=== PATIENT | male | born 1975 | race Caucasian/White ===

== ENCOUNTER → 2018-10-25 11:39 | Outpatient (CLI) | payer BC, SELFPAY ==
--- NOTE | 2018-10-25 11:44 | US_ITS ---
STUDY: SCROTUM ULTRASOUND REASON FOR EXAM: Male, 43 years old. Left testicular pain for one week and a half intermittent. 2010. TECHNIQUE: Ultrasound evaluation of the scrotum was performed with color Doppler and static lau-scale imaging. COMPARISON: None. FINDINGS: RIGHT TESTICLE The right testis measures 35 x 24 x 22 mm, normal echotexture and vascularity. Right epididymal head 9 x 11 x 14 mm, normal echotexture and vascularity, simple epididymal cyst measuring 7.2 mm. No hydrocele or varicocele. LEFT TESTICLE The left testis measures 34 x 24 x 21 mm, normal echotexture and vascularity. Left epididymal head 10 x 11 x 12 mm, epididymal head cyst measuring 3 mm. Mild epididymal body hyperemia and thickening. Trace hydrocele. No varicocele. Bilateral scrotal wall thickening up to 9 mm. US/Testicular with Arterial Flow IMPRESSION: The features of the left epididymis are most consistent with acute epididymitis. No evidence of orchitis, testicular mass or torsion. Small benign epididymal head cysts. Electronically Signed: Martin Sigala MD at 11:27 EDT Tel , Service support ,
== END ==
PROVIDERS: Family Provider Internal Medicine; PCP Internal Medicine; Referring Provider Nurse Practitioner; Visit Provider Nurse Practitioner
DX: N50.812 Left testicular pain (principal)
CPT/HCPCS: 76870; 93976

== ENCOUNTER → 2018-11-15 13:30 | Outpatient (CLI) | payer SELFPAY | PROVIDERS: Family Provider Internal Medicine; PCP Internal Medicine; Referring Provider Nurse Practitioner; Visit Provider Nurse Practitioner | DX: I10 Essential (primary) hypertension (principal) ==

== ENCOUNTER → 2023-09-08 | Outpatient (CLI) | payer BC, SELFPAY ==
--- NOTE | 2023-09-08 08:05 | CT_ITS ---
STUDY: CT ABDOMEN AND PELVIS WITHOUT CONTRAST REASON FOR EXAM: Male, 48 years old. Hematuria, gross. History of renal calculi. RADIATION DOSAGE (If Supplied By Facility): CTDIvol = ( 8.26 ) mGy, DLP = ( 443.52 ) mGycm TECHNIQUE: Transaxial images were obtained from the dome of the diaphragm to the symphysis pubis without oral contrast, and without intravenous contrast. Sagittal and coronal images were reconstructed. Individualized dose optimization techniques were used for this CT. COMPARISON: None. FINDINGS: The visualized lung bases are unremarkable. The visualized portions of the heart are within normal limits. Normal liver. Normal gallbladder and extrahepatic biliary system. Normal spleen. Normal pancreas. Normal bilateral adrenal glands. Nonobstructive punctate calculus seen in the upper pole calyx of the right kidney. Tiny nonobstructive intrarenal calculus seen in the upper pole calyx of the left kidney. Normal visualized stomach. Normal small intestine. There are scattered colonic diverticula consistent with diverticulosis. The appendix is visualized and appears normal. Normal abdominal aorta. Normal inferior vena cava. Normal retroperitoneum. Normal urinary bladder. There is a left-sided inguinal hernia containing adipose tissue. Normal osseous structures. CT/Abdomen/Pelvis without Cont IMPRESSION: Tiny bilateral nonobstructive intrarenal calculi. Electronically Signed: Flip Jain MD at 10:56 EST ,
--- OUTSIDE RECORDS SUMMARY | 2023-09-08 08:31 | XMS RPT_ITS | CCD ---
Author Name Unknown Address [address] [place] [address] Organization [facility] Care Team Providers Care Debt Management Counselor Name Role Phone Delrois Lofton Unavailable Bailey Patton Unavailable Unavailable Martell Katz Unavailable Unavailable Messenger, Giovanna Unavailable Unavailable Unavailable Unavailable Giovanna Ruiz Unavailable Unavailable Gravius, Rosalie Unavailable Unavailable Cecelia Hugo Unavailable Poncho Ahuja Unavailable Aura Ogden Unavailable Unavailable Messenger, Giovanna Unavailable Unavailable Unavailable Unavailable Cecelia Hugo Unavailable Slarb, Caitlin Unavailable Unavailable Martell Fajardo Unavailable Unavailable Cross, Alisson Unavailable Unavailable Oanh SIDDIQUI Cecelia Unavailable [phone] Slarb CANAL STRUCTURE OPERATOR, Caitlin Unavailable Unavailable Cross CANAL STRUCTURE OPERATOR, Alisson Unavailable Unavailable Gravius MACHINE OPERATOR SLITTER TECHNICIAN, Rosalie Unavailable Unavailable Scotty CANAL STRUCTURE OPERATOR, Martell Unavailable Unavailable Unavailable Unavailable Dain Dawson Unavailable Ki CANAL STRUCTURE OPERATOR, Amanda Unavailable Unavailable Cristin Hugo DOhleen Unavailable José MACHINE OPERATOR SLITTER TECHNICIAN, Kayela Unavailable Unavailable Manchak MACHINE OPERATOR SLITTER TECHNICIAN, Brittney Unavailable Unavailable Dr. Cecelia Hugo Attending Unavailab Dr. Cecelia King [facility] Unavailab Cecelia King DO Attending Unavailable Cecelia Hugo DO Consulting Unavailable [place] CANAL STRUCTURE OPERATOR, Manny Unavailable Unavailable Allergies Allergy Classification Reported Allergen(s) Allergy Type Date of Onset Reaction(s) Facility (20 sources) Erythromycins; Translations: [Erythromycins] allergy to substance [facility] Work Phone: Medications Completed/Discontinued Medications Medication Drug Class(es) Dates Sig (Normalized) Sig (Original) allopurinol 300 mg oral tablet (20 sources) Xanthine Oxidase Inhibitor Start: 11-27-2022 take 1 tablet by mouth once daily allopurinoL 300 mg oral tablet 1 (one) Tablet daily for 0 days Quantity: 30 {Tablet} Refills: 6 Ordered: 27-Nov-2022 Cecelia Hugo DO Oanh Cecelia SIDDIQUI Start : 27-Nov-2022 Active Problems Active Problems Problem Classification Problem Date Documented Da te Episodic/Chronic Allergic reactions (20 sources) Contact dermatitis due to plants, except food; Translations: [Contact dermatitis and other eczema due to plants (except food)] Resolved: 03-26-2022 01-25-2019 Episodic Anxiety disorders (20 sources) Panic attack; Translations: [Panic attack] 08-20-2022 Chronic Chronic obstructive pulmonary disease and bronchiectasis (20 sources) Bronchitis; Translations: [Bronchitis] Resolved: 05-24-2019 10-12-2018 Episodic Disorders of lipid metabolism (20 sources) Hypercholesterolem ia; Translations: [Hypercholesteremi a] 10-19-2018 Chronic Essential hypertension (20 sources) Benign hypertension; Translations: [HTN (hypertension), benign (Renamed from Benign hypertension)] 10-12-2018 Chronic Past or Other Problems Problem Classification Problem Date Documented Da te Episodic/Chronic Influenza (20 sources) Influenza Other ear and sense organ disorders (20 sources) Otalgia of left ear; Translations: [Otalgia, left] Resolved: 08-21-2020 01-25-2019 Results Test Name Value Interpretation Reference Range Facil it Vital Signs Date Time Vital Sign Value Performing Clinician Facility 03-24-2023 10:23-0400 Body height 167.[address] [facility] Work Phone: 03-24-2023 10:23-0400 Body mass index (BMI) [Ratio] 32.12 kg/m2 [facility]; [facility] Work Phone: 03-24-2023 10:23-0400 Body surface area Derived from formula [address] [facility]; [facility] Work Phone: 03-24-2023 10:23-0400 Body temperature 97.6 [degF] [facility]; [facility] Work Phone: 03-24-2023 10:23-0400 Body weight 90.[address] [facility]; [facility] Work Phone: 03-24-2023 10:23-0400 Diastolic blood pressure 70 mm[Hg] [facility]; [facility] Work Phone: Encounters Encounter Date Encounter Type Care Provider Facility Start: 03-24-2023 End: 03-24-2023 Office outpatient visit 15 minutes Cecelia Oanh DO Work Phone: [facility] Start: 09-04-2022 End: 09-04-2022 Office outpatient visit 15 minutes Cecelia Oanh DO Work Phone: [facility] Start: 09-02-2022 ambulatory Cecelia Oanh DO [facility] Start: 08-26-[address] Cecelia Hugo Facility:[id number] Start: 08-20-2022 End: 08-20-2022 Phone Encounter Cecelia Oanh DO Work Phone: [facility] Start: 08-20-2022 End: 08-20-2022 Office outpatient visit 40 minutes Cecelia Oanh DO Work Phone: [facility] Start: 03-26-2022 End: 03-26-2022 Office outpatient visit 15 minutes Cecelia Oanh DO Work Phone: [facility] Start: 06-18-2021 End: 06-18-2021 Office outpatient visit 10 minutes Cecelia Oanh DO Work Phone: [facility] Start: 05-14-2021 End: 05-14-2021 Office outpatient visit 15 minutes Cecelia Oanh DO Work Phone: [facility] Start: 04-22-2021 End: 04-22-2021 Annotation/Addendum Cecelia Oanh DO Work Phone: [facility] Start: 04-22-2021 End: 04-22-2021 Office outpatient visit 15 minutes Cecelia Oanh DO Work Phone: [facility] Start: 04-14-2021 End: 04-14-2021 Annotation/Addendum Cecelia Santanaon DO Work Phone: [facility] Start: 04-14-2021 End: 04-14-2021 Office outpatient visit 10 minutes Cecelia Oanh DO Work Phone: [facility] Start: 01-01-2021 End: 01-01-2021 Office outpatient visit 15 minutes Cecelia Oanh DO Work Phone: [facility] Start: 11-14-2020 End: 11-15-2020 Office outpatient visit 15 minutes Cecelia Oanh DO Work Phone: [facility] Start: 11-08-2020 Review [facility] Start: 09-16-2020 End: 09-16-2020 Office outpatient visit 10 minutes Cecelia Oanh [facility] Start: 08-21-2020 End: 08-21-2020 Office outpatient visit 25 minutes Ceceliaclyde Hugo [facility] Start: 11-23-2019 End: 11-23-2019 Office outpatient visit 25 minutes Deloris Nielsen [facility] Start: 05-24-2019 End: 05-24-2019 Office outpatient visit 25 minutes Deloris Nielsen [facility] Start: 01-25-2019 End: 01-25-2019 Office outpatient visit 15 minutes Deloris Nielsen [facility] Start: 11-21-2018 End: 11-21-2018 Annotation/Addendum Deloris Lofton [facility] Start: 10-31-2018 End: 10-31-2018 Office outpatient visit 15 minutes Deloris Nielsen [facility] Start: 10-26-2018 End: 10-26-2018 Annotation/Addendum Deloris Nielsen [facility] Start: 10-19-2018 End: 10-19-2018 Annotation/Addendum Deloris Lofton [facility] Start: 10-19-2018 End: 10-19-2018 Office outpatient visit 15 minutes Deloris Nielsen [facility] Start: 10-19-2018 Review Deloris Pinedalynn [facility] Start: 10-12-2018 End: 10-12-2018 Office outpatient visit 25 minutes Deloris Nielsen [facility] Start: 09-28-2018 End: 09-28-2018 Office outpatient visit 15 minutes Deloris Nielsen [facility] Start: 05-14-2017 End: 05-14-2017 Phone Encounter Deloris Nielsen [facility] Start: 05-13-2017 End: 05-13-2017 Office outpatient visit 15 minutes Deloris Nielsen [facility] Start: 09-23-2016 End: 09-24-2016 Office outpatient visit 15 minutes Deloris Nielsen [facility] Start: 02-26-2016 End: 02-26-2016 Office outpatient visit 15 minutes Deloris Nielsen [facility] Start: 10-29-2015 End: 10-29-2015 Office outpatient visit 15 minutes Deloris Nielsen [facility] Start: 06-05-2015 End: 06-05-2015 Office outpatient visit 5 minutes Deloris Nielsen [facility] Start: 06-05-2015 End: 06-05-2015 Office outpatient visit 15 minutes Deloris Nielsen [facility] Start: 01-12-2014 End: 01-12-2014 Patient encounter procedure Deloris Nielsen [facility] Start: 08-17-2013 End: 08-17-2013 Patient encounter procedure Deloris Nielsen [facility] Start: 02-23-2013 End: 02-23-2013 Patient encounter procedure Deloris Nielsen [facility] Start: 02-23-2013 End: 02-23-2013 Patient encounter status Cecelia Hugo DO Work Phone: [facility] Start: 10-04-2012 End: 10-04-2012 Office outpatient visit 25 minutes Deloris Nielsen [facility] Start: 01-11-2012 End: 01-11-2012 Office outpatient visit 15 minutes Deloris Nielsen [facility] Start: 12-14-2011 End: 12-14-2011 Annotation/Addendum Deloris Nielsen [facility] Start: 12-09-2011 End: 12-09-2011 Office outpatient visit 15 minutes Deloris Nielsen [facility] Start: 08-10-2011 End: 08-10-2011 Office outpatient visit 15 minutes Deloris Ciesa [facility] Start: 12-30-2010 End: 12-30-2010 Office outpatient new 30 minutes Deloris Lofton [facility] Patient encounter status Caitlin Pillai [facility]; [facility] Work Phone: Patient encounter status Alisson Nazario [facility]; [facility] Work Phone: Patient encounter status Rosalie Hernandez [facility]; [facility] Work Phone: Patient encounter status Amanda Emerson [facility]; [facility] Work Phone: Patient encounter status Rosalie Hernandez [facility]; [facility] Work Phone: [facility] Work [facility] Work Phone: Patient encounter status Manny Rosado [facility]; [facility] Work Phone: Procedures Date Procedure Procedure Detail Performing Clinician Start: 10-25-2018 End: 10-26-2018 Testicular with Arterial Flow Comments: See Note; NOTES: [facility] Services [address] [place] [address] Testicular with Arterial Flow MR#: [id number] Acct: [id number] Name: ANAHY ROGERS Rep #: [id number] : 1975 M 43 From: Martin Sigala MD PCP: Marie Smart MD Status: REG CLI Study: Testicular with Arterial Flow Date of Exam: 10/25/18 Exam# [id number] Ordering Dr: Deloris Lofton DIALER-C STUDY: SCROTUM ULTRASOUND REASON FOR EXAM: Male, 43 years old. Left testicular pain for one week and a half intermittent. Mastectomy 2010. TECHNIQUE: Ultrasound evaluation of the scrotum was performed with color Doppler and static lau-scale imaging. COMPARISON: None. FINDINGS: RIGHT TESTICLE The right testis measures 35 x 24 x 22 mm, normal echotexture and vascularity. Right epididymal head 9 x 11 x 14 mm, normal echotexture and vascularity, simple epididymal cyst measuring 7.2 mm. No hydrocele or varicocele. LEFT TESTICLE The left testis measures 34 x 24 x 21 mm, normal echotexture and vascularity. Left epididymal head 10 x 11 x 12 mm, epididymal head cyst measuring 3 mm. Mild epididymal body hyperemia and thickening. Trace hydrocele. No varicocele. Bilateral scrotal wall thickening up to 9 mm. US/Testicular with Arterial Flow IMPRESSION: The features of the left epididymis are most consistent with acute epididymitis. No evidence of orchitis, testicular mass or torsion. Small benign epididymal head cysts. Electronically Signed: Martin Sigala MD at 11:27 EDT Tel , Service support , CC: Deloris Lofton DIALER; Marie Smart MD Director Nurses' Registry: Signed Deloris Lofton Work Phone: Plan of Treatment Date Care Activity Detail Author Start: 03-24-2023 Procedure Education Eprescribed prescriptions (G8553) [facility]; [facility] Work Phone: Start: 09-04-2022 Procedure Education Eprescribed prescriptions (G8553) [facility]; [facility] Work Phone: Start: 09-04-2022 Provider Instructions for Treatment [facility]; [facility] Work Phone: Start: 08-20-2022 Assay of thyroid stimulating hormone tsh TSH (THYROID STIMULATING HORMONE) (29108) [facility]; [facility] Work Phone: Start: 08-20-2022 Procedure Education Eprescribed prescriptions (G8553) [facility]; [facility] Work Phone: Start: 08-20-2022 Provider Instructions for Treatment Continue Current Prescription(s) [facility]; [facility] Work Phone: Start: 08-20-2022 Urine albumin quantitative MICROALBUMIN: CREATININE RATIO (42651) AND (23053) [facility]; [facility] Work Phone: Start: 08-20-2022 Urinalysis qual/semiquant except immunoassays URINALYSIS (97342) [facility]; [facility] Work Phone: Start: 08-20-2022 Assay of blood/uric acid URIC ACID BLOOD (16395) [facility]; [facility] Work Phone: Start: 08-20-2022 Lipid panel LIPID PANEL (38658) [facility]; [facility] Work Phone: Start: 08-20-2022 25 hydroxy includes fractions if performed CALCIFEDIOL (17968) [facility]; [facility] Work Phone: Start: 08-20-2022 Comprehensive metabolic panel METABOLIC PANEL, COMPREHENSIVE (26779) [facility]; [facility] Work Phone: Start: 08-20-2022 CBC, PLATELETS & MANUAL DIFF (07509) CBC, PLATELETS & MANUAL DIFF (15772) [facility]; [facility] Work Phone: Start: 08-20-2022 Assay of troponin quantitative Troponin I (92419) [facility]; [facility] Work Phone: Start: 08-20-2022 Hemoglobin glycosylated a1c HGB A1C (66020) [facility]; [facility] Work Phone: Start: 08-20-2022 Sedimentation rate rbc non-automated SED RATE ERYTHROCYTE (24916) [facility]; [facility] Work Phone: Start: 08-20-2022 Cyanocobalamin vitamin b-12 VITAMIN B-12 (CYANOCOBALAMIN) (64657) [facility]; [facility] Work Phone: Start: 03-26-2022 Procedure Education Eprescribed prescriptions (G8553) [facility]; [facility] Work Phone: Start: 09-01-2022 Provider Instructions for Treatment [facility]; [facility] Work Phone: Start: 06-18-2021 Provider Instructions for Treatment [facility]; [facility] Work Phone: Start: 05-14-2021 Provider Instructions for Treatment Follow up in 1 month with [facility] for Gen med [facility]; [facility] Work Phone: Start: 04-22-2021 Procedure Education Eprescribed prescriptions (G8553) [facility]; [facility] Work Phone: Start: 04-22-2021 Provider Instructions for Treatment Follow up in 2 weeks virtual [facility]; [facility] Work Phone: Start: 04-14-2021 Procedure Education Eprescribed prescriptions (G8553) [facility]; [facility] Work Phone: Start: 04-14-2021 Provider Instructions for Treatment [facility]; [facility] Work Phone: Start: 01-01-2021 Procedure Education Eprescribed prescriptions (G8553) [facility]; [facility] Work Phone: Start: 01-01-2021 Provider Instructions for Treatment [facility]; [facility] Work Phone: Start: 11-14-2020 Procedure Education Eprescribed prescriptions (G8553) [facility]; [facility] Work Phone: Start: 11-14-2020 Provider Instructions for Treatment [facility]; [facility] Work Phone: Start: 11-14-2020 Assay of blood/uric acid URIC ACID BLOOD (87762) [facility] Work Phone: Start: 11-14-2020 25 hydroxy includes fractions if performed CALCIFIDIOL (39440) VIT D 25 [facility]; [facility] Work Phone: Start: 11-14-2020 Assay of thyroid stimulating hormone tsh TSH (43060) [facility]; [facility] Work Phone: Start: 11-14-2020 Urnls dip stick/tablet reagent auto microscopy URINALYSIS, W/ MICRO (07317) [facility]; [facility] Work Phone: Start: 11-14-2020 Urine albumin quantitative MICROALBUMIN: CREATININE RATIO (49619) AND (87832) [facility]; [facility] Work Phone: Start: 11-14-2020 Comprehensive metabolic panel METABOLIC PANEL, COMPREHENSIVE (05986) [facility]; [facility] Work Phone: Start: 11-14-2020 Blood count complete auto&auto difrntl wbc CBC W/AUTO DIFF WBC (18629) [facility]; [facility] Work Phone: Start: 11-14-2020 Lipid panel LIPID PANEL (89885) [facility]; [facility] Work Phone: Start: 11-08-2020 Procedure Education Eprescribed prescriptions (G8553) [facility]; [facility] Work Phone: Start: 11-08-2020 Provider Instructions for Treatment COVID SCREENING FORM [facility]; [facility] Work Phone: Start: 09-16-2020 Procedure Education Eprescribed prescriptions (G8553) [facility]; [facility] Work Phone: Start: 09-16-2020 Provider Instructions for Treatment [facility]; [facility] Work Phone: Start: 08-21-2020 Procedure Education Eprescribed prescriptions (G8553) [facility]; [facility] Work Phone: Start: 08-21-2020 Provider Instructions for Treatment [facility]; [facility] Work Phone: Start: 08-21-2020 Lipid panel LIPID PANEL (11752) [facility] Work Phone: Start: 11-23-2019 Procedure Education Eprescribed prescriptions (G8553) [facility] Work Phone: Start: 11-23-2019 Provider Instructions for Treatment [facility] Work Phone: Start: 11-23-2019 Assay of blood/uric acid URIC ACID BLOOD (29716) [facility] Work Phone: Start: 11-23-2019 25 hydroxy includes fractions if performed CALCIFIDIOL (29271) VIT D 25 [facility] Work Phone: Start: 11-23-2019 Assay of thyroid stimulating hormone tsh TSH (02365) [facility]; [facility] Work Phone: Start: 11-23-2019 TSH Qn TSH (71372) [facility] Work Phone: Start: 11-23-2019 Urnls dip stick/tablet reagent auto microscopy URINALYSIS, W/ MICRO (98810) [facility] Work Phone: Start: 11-23-2019 Urine albumin quantitative MICROALBUMIN: CREATININE RATIO (07588) AND (96440) [facility] Work Phone: Start: 11-23-2019 Comprehensive metabolic panel METABOLIC PANEL, COMPREHENSIVE (20580) [facility] Work Phone: Start: 11-23-2019 Blood count complete auto&auto difrntl wbc CBC W/AUTO DIFF WBC (12465) [facility] Work Phone: Start: 11-23-2019 Lipid panel LIPID PANEL (01529) [facility] Work Phone: Start: 05-24-2019 Provider Instructions for Treatment [facility] Work Phone: Start: 05-24-2019 25 hydroxy includes fractions if performed CALCIFIDIOL (53430) VIT D 25 [facility] Work Phone: Start: 05-24-2019 Assay of thyroid stimulating hormone tsh TSH (46163) [facility]; [facility] Work Phone: Start: 05-24-2019 TSH Qn TSH (83706) [facility] Work Phone: Start: 05-24-2019 Urnls dip stick/tablet reagent auto microscopy URINALYSIS, W/ MICRO (32496) [facility] Work Phone: Start: 05-24-2019 Urine albumin quantitative MICROALBUMIN: CREATININE RATIO (29837) AND (73990) [facility] Work Phone: Start: 05-24-2019 Comprehensive metabolic panel METABOLIC PANEL, COMPREHENSIVE (45025) [facility] Work Phone: Start: 05-24-2019 Blood count complete auto&auto difrntl wbc CBC W/AUTO DIFF WBC (89405) [facility] Work Phone: Start: 05-24-2019 Lipoprotein blood rissa numbers & subclasses NMR Profile (34604) [facility] Work Phone: Start: 01-25-2019 Provider Instructions for Treatment [facility] Work Phone: Start: 01-16-2019 Hemoglobin A1c/Hemoglobin.total mass fraction (Bld) HGB A1C (42575) [facility] Work Phone: Start: 01-16-2019 Urnls dip stick/tablet rgnt auto w/o microscopy URINALYSIS W/O MICRO (31096) [facility] Work Phone: Start: 01-16-2019 25 hydroxy includes fractions if performed CALCIFEDIOL (91425) [facility] Work Phone: Start: 01-16-2019 Lipoprotein blood rissa numbers & subclasses NMR Profile (34714) [facility] Work Phone: Start: 01-16-2019 Protein mass conc NMR Profile (36883) [facility] Work Phone: Start: 01-16-2019 Comprehensive metabolic panel Metabolic Panel, Comprehensive (20645) [facility] Work Phone: Start: 01-16-2019 Assay of blood/uric acid URIC ACID BLOOD (46802) [facility] Work Phone: Start: 10-31-2018 Patient Education Gout: joint [facility] Work Phone: Start: 10-31-2018 Procedure Education Eprescribed prescriptions (G8553) [facility] Work Phone: Start: 10-31-2018 Provider Instructions for Treatment Follow up if no improvement or if symptoms worsen [facility] Work Phone: Start: 10-31-2018 Assay of blood/uric acid URIC ACID BLOOD (38375) [facility] Work Phone: Start: 10-19-2018 Procedure Education Eprescribed prescriptions (G8553) [facility] Work Phone: Start: 10-19-2018 Provider Instructions for Treatment [facility] Work Phone: Start: 10-12-2018 Procedure Education Eprescribed prescriptions (G8553) [facility] Work Phone: Start: 10-12-2018 Provider Instructions for Treatment [facility] Work Phone: Start: 10-12-2018 Lipoprotein blood rissa numbers & subclasses NMR Profile (13058) [facility] Work Phone: Start: 10-12-2018 Blood count manual cell count each CBC with auto diff (05342) [facility] Work Phone: Start: 10-12-2018 Comprehensive metabolic panel METABOLIC PANEL, COMPREHENSIVE (83017) [facility] Work Phone: Start: 10-12-2018 Lipid panel LIPID PANEL (01404) [facility] Work Phone: Start: 10-12-2018 TSH Qn TSH ([id number]) [facility] Work Phone: Start: 10-12-2018 Urine albumin quantitative MICROALBUMIN: CREATININE RATIO ([id number]) AND ([id number]) [facility] Work Phone: Start: 10-12-2018 Urnls dip stick/tablet reagent auto microscopy URINALYSIS, W/ MICRO ([id number]) [facility] Work Phone: Start: 09-28-2018 Procedure Education Eprescribed prescriptions (G8553) [facility] Work Phone: Start: 09-28-2018 Provider Instructions for Treatment Follow up in 2 weeks [facility] Work Phone: Start: 05-13-2017 Procedure Education Eprescribed prescriptions (G8553) [facility] Work Phone: Start: 09-23-2016 Patient Education Earache: ear ache [facility] Work Phone: Start: 09-23-2016 Procedure Education Eprescribed prescriptions (G8553) [facility] Work Phone: Start: 02-26-2016 Procedure Education Eprescribed prescriptions (G8553) [facility] Work Phone: Start: 02-26-2016 Provider Instructions for Treatment Follow up if no improvement or if symptoms worsen [facility] Work Phone: Start: 10-29-2015 Provider Instructions for Treatment [facility] Work Phone: Start: 06-05-2015 Patient Education Hematuria (Blood in Urine): kidney [facility] Work Phone: Start: 06-05-2015 Procedure Education Eprescribed prescriptions (G8553) [facility] Work Phone: Start: 01-12-2014 Procedure Education Eprescribed prescriptions (G8553) [facility] Work Phone: Start: 01-12-2014 Provider Instructions for Treatment Reviewed Lab [facility] Work Phone: Start: 08-17-2013 Provider Instructions for Treatment Solu Medrol Injection/ Education [facility] Work Phone: Start: 02-23-2013 Provider Instructions for Treatment Follow up in 1 yr [facility] Work Phone: Start: 10-04-2012 Nursing Care Education IV [facility] Work Phone: Start: 10-04-2012 Provider Instructions for Treatment [facility] Work Phone: Start: 10-04-2012 Iaadiadoo influenza Rapid Flu (89437 x 2) [facility] Work Phone: Start: 01-11-2012 Provider Instructions for Treatment Follow up if no improvement or if symptoms worsen [facility] Work Phone: Start: 01-11-2012 25 hydroxy includes fractions if performed CALCIFEDIOL (75990) [facility] Work Phone: Start: 12-14-2011 25 hydroxy includes fractions if performed CALCIFEDIOL (66944) [facility] Work Phone: Start: 12-09-2011 Provider Instructions for Treatment Follow up in 2 weeks [facility] Work Phone: Start: 12-09-2011 25 hydroxy includes fractions if performed CALCIFEDIOL (73497) [facility] Work Phone: [facility] Work [facility]: [facility] Work [facility]: [facility] Work [facility]: [facility] Work [facility]: [facility] Work [facility] Work [facility]: [facility] Work [facility]: [facility] Work [facility]: [facility] Work Phone: INFUSION, NORMAL SALINE SOLUTION , 1000 CC Ordered: 04-Oct-2012 Amelia Luque LPN Pending [facility] Work Phone: [facility] Work [facility]: [facility] Work [facility]: [facility] Work Phone: Dehydration : IV [facility] Work Phone: [facility] Work [facility]: [facility] Work [facility]: [facility] Work [facility]: [facility] Work [facility] Work Phone: [facility] Work Phone: [facility] Work Phone: [facility] Work Phone: [facility] Work Phone: Immunizations Immunization Date Immunization Notes Care Provider Glendy chalinogabriel 04-12-2022 COVID-Pfizer (10 MCG/0.2 ML) Cecelia Hugo DO Work Phone: [facility]; [facility] Work Phone: 04-09-2022 influenza, seasonal, injectable Cecelia Hugo DO Work Phone: [facility]; [facility] Work Phone: 11-23-2020 COVID-19 (Moderna) Cecelia Hugo DO Work Phone: [facility]; [facility] Work Phone: Payers Date Payer Category Payer Unknown [id number] 2009 Private Health Insurance [id number] 1977 Unknown [id number] 1977 Unknown [id number] Unknown Audrey AMOS/LEANDRO Unknown [id number] Social History Date Type Detail Facility Tobacco use: Never smoker [facility] Work Phone: Tobacco use: Tobacco use: [facility] Work Phone: Functional Status Date Assessment Result Facility 10-12-2018 LP-IR Score LP-IR Score 100 [facility] Work Phone: Clinical Notes Note Date & Type Note Facility [facility] Work Phone: [phone]* Name Dates Details How to Access Health Informa tion Online using Patient Portal and [employer] Apps Indication:Non-smoker Start:14-Nov-2020 Instruction Type:Patient Education Patient Instructions Indication:Non-smoker Start:14-Nov-2020 Instruction Type:Provider Instructions for Treatment Patient Instructions Indication:Non-smoker Start:16-Sep-2020 Instruction Type:Provider Instructions for Treatment How to Access Health Informa tion Online using Patient Portal and [employer] Apps Indication:Non-smoker Start:16-Sep-2020 Instruction Type:Patient Education Patient Instructions Indication:Non-smoker Start:21-Aug-2020 Instruction Type:Provider Instructions for Treatment How to Access Health Informa tion Online using Patient Portal and [employer] Apps Indication:Non-smoker Start:21-Aug-2020 Instruction Type:Patient Education How to access health informa tion online Indication:Non-smoker Start:23-Nov-2019 Instruction Type:Patient Education How to access health informa tion online - Detail Indication:Non-smoker Start:23-Nov-2019 Instruction Type:Patient Education Patient Instructions Indication:Non-smoker Start:23-Nov-2019 Instruction Type:Provider Instructions for Treatment How to access health informa tion online Indication:Non-smoker Start:25-Jan-2019 Instruction Type:Patient Education How to access health informa tion online - Detail Indication:Non-smoker Start:25-Jan-2019 Instruction Type:Patient Education Patient Instructions Indication:Non-smoker Start:25-Jan-2019 Instruction Type:Provider Instructions for Treatment How to access health informa tion online Indication:Non-smoker Start:31-Oct-2018 Instruction Type:Patient Education How to access health informa tion online - Detail Indication:Non-smoker Start:31-Oct-2018 Instruction Type:Patient Education Patient Instructions Indication:Gout Start:31-Oct-2018 Instruction Type:Provider Instructions for Treatment How to access health informa tion online Indication:Non-smoker Start:19-Oct-2018 Instruction Type:Patient Education How to access health informa tion online - Detail Indication:Non-smoker Start:19-Oct-2018 Instruction Type:Patient Education Patient Instructions Indication:Elevated blood-pressure reading, without diagnosis of hypertension (Renamed from Elevated blood-pressure reading without diagnosis of hypertension) Start:19-Oct-2018 Instruction Type:Provider Instructions for Treatment How to access health informa tion online Indication:BMI 32.0-32.9,adult Start:12-Oct-2018 Instruction Type:Patient Education How to access health informa tion online - Detail Indication:BMI 32.0-32.9,adult Start:12-Oct-2018 Instruction Type:Patient Education Patient Instructions Indication:BMI 32.0-32.9,adult Start:12-Oct-2018 Instruction Type:Provider Instructions for Treatment How to access health informa tion online Indication:Non-smoker Start:28-Sep-2018 Instruction Type:Patient Education How to access health informa tion online - Detail Indication:Non-smoker Start:28-Sep-2018 Instruction Type:Patient Education Patient Instructions Indication:Non-smoker Start:28-Sep-2018 Instruction Type:Provider Instructions for Treatment How to access health informa tion online Indication:Bacterial sinusitis Start:13-May-2017 Instruction Type:Patient Education How to access health informa tion online - Detail Indication:Bacterial sinusitis Start:13-May-2017 Instruction Type:Patient Education Patient Instructions Indication:Bacterial sinusitis Start:13-May-2017 Instruction Type:Provider Instructions for Treatment How to access health informa tion online Indication:Bacterial sinusitis Start:23-Sep-2016 Instruction Type:Patient Education How to access health informa tion online - Detail Indication:Bacterial sinusitis Start:23-Sep-2016 Instruction Type:Patient Education Patient Instructions Indication:Bacterial sinusitis Start:23-Sep-2016 Instruction Type:Provider Instructions for Treatment How to access health informa tion online Indication:Rash Start:26-Feb-2016 Instruction Type:Patient Education How to access health informa tion online - Detail Indication:Rash Start:26-Feb-2016 Instruction Type:Patient Education Patient Instructions Indication:Rash Start:26-Feb-2016 Instruction Type:Provider Instructions for Treatment How to access health informa tion online Indication:Hematuria Start:05-Jun-2015 Instruction Type:Patient Education How to access health informa tion online - Detail Indication:Hematuria Start:05-Jun-2015 Instruction Type:Patient Education Patient Instructions Indication:Hematuria Start:05-Jun-2015 Instruction Type:Provider Instructions for Treatment Patient Instructions Indication:Gout Start:12-Jan-2014 Instruction Type:Provider Instructions for Treatment Patient Instructions Indication:Foot pain Start:17-Aug-2013 Instruction Type:Provider Instructions for Treatment [facility]; [facility] Work Phone: Instructions* Name Dates Details Patient Instructions Indication:BMI 32.0-32.9,adult Start:01-Jan-2021 Instruction Type:Provider Instructions for Treatment How to Access Health Informa tion Online using Patient Portal and [employer] Apps Indication:BMI 32.0-32.9,adult Start:01-Jan-2021 Instruction Type:Patient Education How to Access Health Informa tion Online using Patient Portal and [employer] Apps Indication:Non-smoker Start:14-Nov-2020 Instruction Type:Patient Education Patient Instructions Indication:Non-smoker Start:14-Nov-2020 Instruction Type:Provider Instructions for Treatment Patient Instructions Indication:Non-smoker Start:16-Sep-2020 Instruction Type:Provider Instructions for Treatment How to Access Health Informa tion Online using Patient Portal and [employer] Apps Indication:Non-smoker Start:16-Sep-2020 Instruction Type:Patient Education Patient Instructions Indication:Non-smoker Start:21-Aug-2020 Instruction Type:Provider Instructions for Treatment How to Access Health Informa tion Online using Patient Portal and [employer] Apps Indication:Non-smoker Start:21-Aug-2020 Instruction Type:Patient Education How to access health informa tion online Indication:Non-smoker Start:23-Nov-2019 Instruction Type:Patient Education How to access health informa tion online - Detail Indication:Non-smoker Start:23-Nov-2019 Instruction Type:Patient Education Patient Instructions Indication:Non-smoker Start:23-Nov-2019 Instruction Type:Provider Instructions for Treatment How to access health informa tion online Indication:Non-smoker Start:25-Jan-2019 Instruction Type:Patient Education How to access health informa tion online - Detail Indication:Non-smoker Start:25-Jan-2019 Instruction Type:Patient Education Patient Instructions Indication:Non-smoker Start:25-Jan-2019 Instruction Type:Provider Instructions for Treatment How to access health informa tion online Indication:Non-smoker Start:31-Oct-2018 Instruction Type:Patient Education How to access health informa tion online - Detail Indication:Non-smoker Start:31-Oct-2018 Instruction Type:Patient Education Patient Instructions Indication:Gout Start:31-Oct-2018 Instruction Type:Provider Instructions for Treatment How to access health informa tion online Indication:Non-smoker Start:19-Oct-2018 Instruction Type:Patient Education How to access health informa tion online - Detail Indication:Non-smoker Start:19-Oct-2018 Instruction Type:Patient Education Patient Instructions Indication:Elevated blood-pressure reading, without diagnosis of hypertension (Renamed from Elevated blood-pressure reading without diagnosis of hypertension) Start:19-Oct-2018 Instruction Type:Provider Instructions for Treatment How to access health informa tion online Indication:BMI 32.0-32.9,adult Start:12-Oct-2018 Instruction Type:Patient Education How to access health informa tion online - Detail Indication:BMI 32.0-32.9,adult Start:12-Oct-2018 Instruction Type:Patient Education Patient Instructions Indication:BMI 32.0-32.9,adult Start:12-Oct-2018 Instruction Type:Provider Instructions for Treatment How to access health informa tion online Indication:Non-smoker Start:28-Sep-2018 Instruction Type:Patient Education How to access health informa tion online - Detail Indication:Non-smoker Start:28-Sep-2018 Instruction Type:Patient Education Patient Instructions Indication:Non-smoker Start:28-Sep-2018 Instruction Type:Provider Instructions for Treatment How to access health informa tion online Indication:Bacterial sinusitis Start:13-May-2017 Instruction Type:Patient Education How to access health informa tion online - Detail Indication:Bacterial sinusitis Start:13-May-2017 Instruction Type:Patient Education Patient Instructions Indication:Bacterial sinusitis Start:13-May-2017 Instruction Type:Provider Instructions for Treatment How to access health informa tion online Indication:Bacterial sinusitis Start:23-Sep-2016 Instruction Type:Patient Education How to access health informa tion online - Detail Indication:Bacterial sinusitis Start:23-Sep-2016 Instruction Type:Patient Education Patient Instructions Indication:Bacterial sinusitis Start:23-Sep-2016 Instruction Type:Provider Instructions for Treatment How to access health informa tion online Indication:Rash Start:26-Feb-2016 Instruction Type:Patient Education How to access health informa tion online - Detail Indication:Rash Start:26-Feb-2016 Instruction Type:Patient Education Patient Instructions Indication:Rash Start:26-Feb-2016 Instruction Type:Provider Instructions for Treatment How to access health informa tion online Indication:Hematuria Start:05-Jun-2015 Instruction Type:Patient Education How to access health informa tion online - Detail Indication:Hematuria Start:05-Jun-2015 Instruction Type:Patient Education Patient Instructions Indication:Hematuria Start:05-Jun-2015 Instruction Type:Provider Instructions for Treatment Patient Instructions Indication:Gout Start:12-Jan-2014 Instruction Type:Provider Instructions for Treatment Patient Instructions Indication:Foot pain Start:17-Aug-2013 Instruction Type:Provider Instructions for Treatment [facility]; [facility] Work Phone: Instructions* Name Dates Details Patient Instructions Indication:HTN (hypertension), benign Start:18-Jun-2021 Instruction Type:Provider Instructions for Treatment Patient Instructions Indication:HTN (hypertension), benign Start:14-May-2021 Instruction Type:Provider Instructions for Treatment Patient Instructions Indication:BMI 32.0-32.9,adult Start:22-Apr-2021 Instruction Type:Provider Instructions for Treatment How to Access Health Informa tion Online using Patient Portal and [employer] Apps Indication:BMI 32.0-32.9,adult Start:22-Apr-2021 Instruction Type:Patient Education Patient Instructions Indication:Non-smoker Start:14-Apr-2021 Instruction Type:Provider Instructions for Treatment How to Access Health Informa tion Online using Patient Portal and [employer] Apps Indication:Non-smoker Start:14-Apr-2021 Instruction Type:Patient Education Patient Instructions Indication:BMI 32.0-32.9,adult Start:01-Jan-2021 Instruction Type:Provider Instructions for Treatment How to Access Health Informa tion Online using Patient Portal and [employer] Republican Apps Indication:BMI 32.0-32.9,adult Start:01-Jan-2021 Instruction Type:Patient Education How to Access Health Informa tion Online using Patient Portal and [employer] Apps Indication:Non-smoker Start:14-Nov-2020 Instruction Type:Patient Education Patient Instructions Indication:Non-smoker Start:14-Nov-2020 Instruction Type:Provider Instructions for Treatment Patient Instructions Indication:Non-smoker Start:16-Sep-2020 Instruction Type:Provider Instructions for Treatment How to Access Health Informa tion Online using Patient Portal and [employer] Apps Indication:Non-smoker Start:16-Sep-2020 Instruction Type:Patient Education Patient Instructions Indication:Non-smoker Start:21-Aug-2020 Instruction Type:Provider Instructions for Treatment How to Access Health Informa tion Online using Patient Portal and [employer] Apps Indication:Non-smoker Start:21-Aug-2020 Instruction Type:Patient Education How to access health informa tion online Indication:Non-smoker Start:23-Nov-2019 Instruction Type:Patient Education How to access health informa tion online - Detail Indication:Non-smoker Start:23-Nov-2019 Instruction Type:Patient Education Patient Instructions Indication:Non-smoker Start:23-Nov-2019 Instruction Type:Provider Instructions for Treatment How to access health informa tion online Indication:Non-smoker Start:25-Jan-2019 Instruction Type:Patient Education How to access health informa tion online - Detail Indication:Non-smoker Start:25-Jan-2019 Instruction Type:Patient Education Patient Instructions Indication:Non-smoker Start:25-Jan-2019 Instruction Type:Provider Instructions for Treatment How to access health informa tion online Indication:Non-smoker Start:31-Oct-2018 Instruction Type:Patient Education How to access health informa tion online - Detail Indication:Non-smoker Start:31-Oct-2018 Instruction Type:Patient Education Patient Instructions Indication:Gout Start:31-Oct-2018 Instruction Type:Provider Instructions for Treatment How to access health informa tion online Indication:Non-smoker Start:19-Oct-2018 Instruction Type:Patient Education How to access health informa tion online - Detail Indication:Non-smoker Start:19-Oct-2018 Instruction Type:Patient Education Patient Instructions Indication:Elevated blood-pressure reading, without diagnosis of hypertension (Renamed from Elevated blood-pressure reading without diagnosis of hypertension) Start:19-Oct-2018 Instruction Type:Provider Instructions for Treatment How to access health informa tion online Indication:BMI 32.0-32.9,adult Start:12-Oct-2018 Instruction Type:Patient Education How to access health informa tion online - Detail Indication:BMI 32.0-32.9,adult Start:12-Oct-2018 Instruction Type:Patient Education Patient Instructions Indication:BMI 32.0-32.9,adult Start:12-Oct-2018 Instruction Type:Provider Instructions for Treatment How to access health informa tion online Indication:Non-smoker Start:28-Sep-2018 Instruction Type:Patient Education How to access health informa tion online - Detail Indication:Non-smoker Start:28-Sep-2018 Instruction Type:Patient Education Patient Instructions Indication:Non-smoker Start:28-Sep-2018 Instruction Type:Provider Instructions for Treatment How to access health informa tion online Indication:Bacterial sinusitis Start:13-May-2017 Instruction Type:Patient Education How to access health informa tion online - Detail Indication:Bacterial sinusitis Start:13-May-2017 Instruction Type:Patient Education Patient Instructions Indication:Bacterial sinusitis Start:13-May-2017 Instruction Type:Provider Instructions for Treatment How to access health informa tion online Indication:Bacterial sinusitis Start:23-Sep-2016 Instruction Type:Patient Education How to access health informa tion online - Detail Indication:Bacterial sinusitis Start:23-Sep-2016 Instruction Type:Patient Education Patient Instructions Indication:Bacterial sinusitis Start:23-Sep-2016 Instruction Type:Provider Instructions for Treatment How to access health informa tion online Indication:Rash Start:26-Feb-2016 Instruction Type:Patient Education How to access health informa tion online - Detail Indication:Rash Start:26-Feb-2016 Instruction Type:Patient Education Patient Instructions Indication:Rash Start:26-Feb-2016 Instruction Type:Provider Instructions for Treatment How to access health informa tion online Indication:Hematuria Start:05-Jun-2015 Instruction Type:Patient Education How to access health informa tion online - Detail Indication:Hematuria Start:05-Jun-2015 Instruction Type:Patient Education Patient Instructions Indication:Hematuria Start:05-Jun-2015 Instruction Type:Provider Instructions for Treatment Patient Instructions Indication:Gout Start:12-Jan-2014 Instruction Type:Provider Instructions for Treatment Patient Instructions Indication:Foot pain Start:17-Aug-2013 Instruction Type:Provider Instructions for Treatment [facility]; [facility] Work Phone: Instructions* Name Dates Details Patient Instructions Indication:HTN (hypertension), benign Start:18-Jun-2021 Instruction Type:Provider Instructions for Treatment Patient Instructions Indication:HTN (hypertension), benign Start:14-May-2021 Instruction Type:Provider Instructions for Treatment Patient Instructions Indication:BMI 32.0-32.9,adult Start:22-Apr-2021 Instruction Type:Provider Instructions for Treatment How to Access Health Informa tion Online using Patient Portal and [employer] Apps Indication:BMI 32.0-32.9,adult Start:22-Apr-2021 Instruction Type:Patient Education Patient Instructions Indication:Non-smoker Start:14-Apr-2021 Instruction Type:Provider Instructions for Treatment How to Access Health Informa tion Online using Patient Portal and [employer] Apps Indication:Non-smoker Start:14-Apr-2021 Instruction Type:Patient Education Patient Instructions Indication:BMI 32.0-32.9,adult Start:01-Jan-2021 Instruction Type:Provider Instructions for Treatment How to Access Health Informa tion Online using Patient Portal and [employer] Apps Indication:BMI 32.0-32.9,adult Start:01-Jan-2021 Instruction Type:Patient Education How to Access Health Informa tion Online using Patient Portal and [employer] Apps Indication:Non-smoker Start:14-Nov-2020 Instruction Type:Patient Education Patient Instructions Indication:Non-smoker Start:14-Nov-2020 Instruction Type:Provider Instructions for Treatment Patient Instructions Indication:Non-smoker Start:16-Sep-2020 Instruction Type:Provider Instructions for Treatment How to Access Health Informa tion Online using Patient Portal and [employer] Apps Indication:Non-smoker Start:16-Sep-2020 Instruction Type:Patient Education Patient Instructions Indication:Non-smoker Start:21-Aug-2020 Instruction Type:Provider Instructions for Treatment How to Access Health Informa tion Online using Patient Portal and [employer] Apps Indication:Non-smoker Start:21-Aug-2020 Instruction Type:Patient Education How to access health informa tion online Indication:Non-smoker Start:23-Nov-2019 Instruction Type:Patient Education How to access health informa tion online - Detail Indication:Non-smoker Start:23-Nov-2019 Instruction Type:Patient Education Patient Instructions Indication:Non-smoker Start:23-Nov-2019 Instruction Type:Provider Instructions for Treatment How to access health informa tion online Indication:Non-smoker Start:25-Jan-2019 Instruction Type:Patient Education How to access health informa tion online - Detail Indication:Non-smoker Start:25-Jan-2019 Instruction Type:Patient Education Patient Instructions Indication:Non-smoker Start:25-Jan-2019 Instruction Type:Provider Instructions for Treatment How to access health informa tion online Indication:Non-smoker Start:31-Oct-2018 Instruction Type:Patient Education How to access health informa tion online - Detail Indication:Non-smoker Start:31-Oct-2018 Instruction Type:Patient Education Patient Instructions Indication:Gout Start:31-Oct-2018 Instruction Type:Provider Instructions for Treatment How to access health informa tion online Indication:Non-smoker Start:19-Oct-2018 Instruction Type:Patient Education How to access health informa tion online - Detail Indication:Non-smoker Start:19-Oct-2018 Instruction Type:Patient Education Patient Instructions Indication:Elevated blood-pressure reading, without diagnosis of hypertension (Renamed from Elevated blood-pressure reading without diagnosis of hypertension) Start:19-Oct-2018 Instruction Type:Provider Instructions for Treatment How to access health informa tion online Indication:BMI 32.0-32.9,adult Start:12-Oct-2018 Instruction Type:Patient Education How to access health informa tion online - Detail Indication:BMI 32.0-32.9,adult Start:12-Oct-2018 Instruction Type:Patient Education Patient Instructions Indication:BMI 32.0-32.9,adult Start:12-Oct-2018 Instruction Type:Provider Instructions for Treatment How to access health informa tion online Indication:Non-smoker Start:28-Sep-2018 Instruction Type:Patient Education How to access health informa tion online - Detail Indication:Non-smoker Start:28-Sep-2018 Instruction Type:Patient Education Patient Instructions Indication:Non-smoker Start:28-Sep-2018 Instruction Type:Provider Instructions for Treatment How to access health informa tion online Indication:Bacterial sinusitis Start:13-May-2017 Instruction Type:Patient Education How to access health informa tion online - Detail Indication:Bacterial sinusitis Start:13-May-2017 Instruction Type:Patient Education Patient Instructions Indication:Bacterial sinusitis Start:13-May-2017 Instruction Type:Provider Instructions for Treatment How to access health informa tion online Indication:Bacterial sinusitis Start:23-Sep-2016 Instruction Type:Patient Education How to access health informa tion online - Detail Indication:Bacterial sinusitis Start:23-Sep-2016 Instruction Type:Patient Education Patient Instructions Indication:Bacterial sinusitis Start:23-Sep-2016 Instruction Type:Provider Instructions for Treatment How to access health informa tion online Indication:Rash Start:26-Feb-2016 Instruction Type:Patient Education How to access health informa tion online - Detail Indication:Rash Start:26-Feb-2016 Instruction Type:Patient Education Patient Instructions Indication:Rash Start:26-Feb-2016 Instruction Type:Provider Instructions for Treatment How to access health informa tion online Indication:Hematuria Start:05-Jun-2015 Instruction Type:Patient Education How to access health informa tion online - Detail Indication:Hematuria Start:05-Jun-2015 Instruction Type:Patient Education Patient Instructions Indication:Hematuria Start:05-Jun-2015 Instruction Type:Provider Instructions for Treatment Patient Instructions Indication:Gout Start:12-Jan-2014 Instruction Type:Provider Instructions for Treatment Patient Instructions Indication:Foot pain Start:17-Aug-2013 Instruction Type:Provider Instructions for Treatment [facility]; [facility] Work Phone: Instructions* Name Dates Details Patient Instructions Indication:Non-smoker Start:26-Mar-2022 Instruction Type:Provider Instructions for Treatment How to Access Health Informa tion Online using Patient Portal and [employer] Apps Indication:Non-smoker Start:26-Mar-2022 Instruction Type:Patient Education Patient Instructions Indication:HTN (hypertension), benign Start:18-Jun-2021 Instruction Type:Provider Instructions for Treatment Patient Instructions Indication:HTN (hypertension), benign Start:14-May-2021 Instruction Type:Provider Instructions for Treatment Patient Instructions Indication:BMI 32.0-32.9,adult Start:22-Apr-2021 Instruction Type:Provider Instructions for Treatment How to Access Health Informa tion Online using Patient Portal and [employer] Apps Indication:BMI 32.0-32.9,adult Start:22-Apr-2021 Instruction Type:Patient Education Patient Instructions Indication:Non-smoker Start:14-Apr-2021 Instruction Type:Provider Instructions for Treatment How to Access Health Informa tion Online using Patient Portal and [employer] Apps Indication:Non-smoker Start:14-Apr-2021 Instruction Type:Patient Education Patient Instructions Indication:BMI 32.0-32.9,adult Start:01-Jan-2021 Instruction Type:Provider Instructions for Treatment How to Access Health Informa tion Online using Patient Portal and [employer] Apps Indication:BMI 32.0-32.9,adult Start:01-Jan-2021 Instruction Type:Patient Education How to Access Health Informa tion Online using Patient Portal and [employer] Apps Indication:Non-smoker Start:14-Nov-2020 Instruction Type:Patient Education Patient Instructions Indication:Non-smoker Start:14-Nov-2020 Instruction Type:Provider Instructions for Treatment Patient Instructions Indication:Non-smoker Start:16-Sep-2020 Instruction Type:Provider Instructions for Treatment How to Access Health Informa tion Online using Patient Portal and [employer] Apps Indication:Non-smoker Start:16-Sep-2020 Instruction Type:Patient Education Patient Instructions Indication:Non-smoker Start:21-Aug-2020 Instruction Type:Provider Instructions for Treatment How to Access Health Informa tion Online using Patient Portal and [employer] Apps Indication:Non-smoker Start:21-Aug-2020 Instruction Type:Patient Education How to access health informa tion online Indication:Non-smoker Start:23-Nov-2019 Instruction Type:Patient Education How to access health informa tion online - Detail Indication:Non-smoker Start:23-Nov-2019 Instruction Type:Patient Education Patient Instructions Indication:Non-smoker Start:23-Nov-2019 Instruction Type:Provider Instructions for Treatment How to access health informa tion online Indication:Non-smoker Start:25-Jan-2019 Instruction Type:Patient Education How to access health informa tion online - Detail Indication:Non-smoker Start:25-Jan-2019 Instruction Type:Patient Education Patient Instructions Indication:Non-smoker Start:25-Jan-2019 Instruction Type:Provider Instructions for Treatment How to access health informa tion online Indication:Non-smoker Start:31-Oct-2018 Instruction Type:Patient Education How to access health informa tion online - Detail Indication:Non-smoker Start:31-Oct-2018 Instruction Type:Patient Education Patient Instructions Indication:Gout Start:31-Oct-2018 Instruction Type:Provider Instructions for Treatment How to access health informa tion online Indication:Non-smoker Start:19-Oct-2018 Instruction Type:Patient Education How to access health informa tion online - Detail Indication:Non-smoker Start:19-Oct-2018 Instruction Type:Patient Education Patient Instructions Indication:Elevated blood-pressure reading, without diagnosis of hypertension (Renamed from Elevated blood-pressure reading without diagnosis of hypertension) Start:19-Oct-2018 Instruction Type:Provider Instructions for Treatment How to access health informa tion online Indication:BMI 32.0-32.9,adult Start:12-Oct-2018 Instruction Type:Patient Education How to access health informa tion online - Detail Indication:BMI 32.0-32.9,adult Start:12-Oct-2018 Instruction Type:Patient Education Patient Instructions Indication:BMI 32.0-32.9,adult Start:12-Oct-2018 Instruction Type:Provider Instructions for Treatment How to access health informa tion online Indication:Non-smoker Start:28-Sep-2018 Instruction Type:Patient Education How to access health informa tion online - Detail Indication:Non-smoker Start:28-Sep-2018 Instruction Type:Patient Education Patient Instructions Indication:Non-smoker Start:28-Sep-2018 Instruction Type:Provider Instructions for Treatment How to access health informa tion online Indication:Bacterial sinusitis Start:13-May-2017 Instruction Type:Patient Education How to access health informa tion online - Detail Indication:Bacterial sinusitis Start:13-May-2017 Instruction Type:Patient Education Patient Instructions Indication:Bacterial sinusitis Start:13-May-2017 Instruction Type:Provider Instructions for Treatment How to access health informa tion online Indication:Bacterial sinusitis Start:23-Sep-2016 Instruction Type:Patient Education How to access health informa tion online - Detail Indication:Bacterial sinusitis Start:23-Sep-2016 Instruction Type:Patient Education Patient Instructions Indication:Bacterial sinusitis Start:23-Sep-2016 Instruction Type:Provider Instructions for Treatment How to access health informa tion online Indication:Rash Start:26-Feb-2016 Instruction Type:Patient Education How to access health informa tion online - Detail Indication:Rash Start:26-Feb-2016 Instruction Type:Patient Education Patient Instructions Indication:Rash Start:26-Feb-2016 Instruction Type:Provider Instructions for Treatment How to access health informa tion online Indication:Hematuria Start:05-Jun-2015 Instruction Type:Patient Education How to access health informa tion online - Detail Indication:Hematuria Start:05-Jun-2015 Instruction Type:Patient Education Patient Instructions Indication:Hematuria Start:05-Jun-2015 Instruction Type:Provider Instructions for Treatment Patient Instructions Indication:Gout Start:12-Jan-2014 Instruction Type:Provider Instructions for Treatment Patient Instructions Indication:Foot pain Start:17-Aug-2013 Instruction Type:Provider Instructions for Treatment [facility]; [facility] Work Phone: Instructions* Name Dates Details Patient Instructions Indication:Non-smoker Start:26-Mar-2022 Instruction Type:Provider Instructions for Treatment How to Access Health Informa tion Online using Patient Portal and [employer] Apps Indication:Non-smoker Start:26-Mar-2022 Instruction Type:Patient Education Patient Instructions Indication:HTN (hypertension), benign Start:18-Jun-2021 Instruction Type:Provider Instructions for Treatment Patient Instructions Indication:HTN (hypertension), benign Start:14-May-2021 Instruction Type:Provider Instructions for Treatment Patient Instructions Indication:BMI 32.0-32.9,adult Start:22-Apr-2021 Instruction Type:Provider Instructions for Treatment How to Access Health Informa tion Online using Patient Portal and [employer] Republican Apps Indication:BMI 32.0-32.9,adult Start:22-Apr-2021 Instruction Type:Patient Education Patient Instructions Indication:Non-smoker Start:14-Apr-2021 Instruction Type:Provider Instructions for Treatment How to Access Health Informa tion Online using Patient Portal and [employer] Apps Indication:Non-smoker Start:14-Apr-2021 Instruction Type:Patient Education Patient Instructions Indication:BMI 32.0-32.9,adult Start:01-Jan-2021 Instruction Type:Provider Instructions for Treatment How to Access Health Informa tion Online using Patient Portal and [employer] Apps Indication:BMI 32.0-32.9,adult Start:01-Jan-2021 Instruction Type:Patient Education How to Access Health Informa tion Online using Patient Portal and [employer] Apps Indication:Non-smoker Start:14-Nov-2020 Instruction Type:Patient Education Patient Instructions Indication:Non-smoker Start:14-Nov-2020 Instruction Type:Provider Instructions for Treatment Patient Instructions Indication:Non-smoker Start:16-Sep-2020 Instruction Type:Provider Instructions for Treatment How to Access Health Informa tion Online using Patient Portal and [employer] Apps Indication:Non-smoker Start:16-Sep-2020 Instruction Type:Patient Education Patient Instructions Indication:Non-smoker Start:21-Aug-2020 Instruction Type:Provider Instructions for Treatment How to Access Health Informa tion Online using Patient Portal and [employer] Apps Indication:Non-smoker Start:21-Aug-2020 Instruction Type:Patient Education How to access health informa tion online Indication:Non-smoker Start:23-Nov-2019 Instruction Type:Patient Education How to access health informa tion online - Detail Indication:Non-smoker Start:23-Nov-2019 Instruction Type:Patient Education Patient Instructions Indication:Non-smoker Start:23-Nov-2019 Instruction Type:Provider Instructions for Treatment How to access health informa tion online Indication:Non-smoker Start:25-Jan-2019 Instruction Type:Patient Education How to access health informa tion online - Detail Indication:Non-smoker Start:25-Jan-2019 Instruction Type:Patient Education Patient Instructions Indication:Non-smoker Start:25-Jan-2019 Instruction Type:Provider Instructions for Treatment How to access health informa tion online Indication:Non-smoker Start:31-Oct-2018 Instruction Type:Patient Education How to access health informa tion online - Detail Indication:Non-smoker Start:31-Oct-2018 Instruction Type:Patient Education Patient Instructions Indication:Gout Start:31-Oct-2018 Instruction Type:Provider Instructions for Treatment How to access health informa tion online Indication:Non-smoker Start:19-Oct-2018 Instruction Type:Patient Education How to access health informa tion online - Detail Indication:Non-smoker Start:19-Oct-2018 Instruction Type:Patient Education Patient Instructions Indication:Elevated blood-pressure reading, without diagnosis of hypertension (Renamed from Elevated blood-pressure reading without diagnosis of hypertension) Start:19-Oct-2018 Instruction Type:Provider Instructions for Treatment How to access health informa tion online Indication:BMI 32.0-32.9,adult Start:12-Oct-2018 Instruction Type:Patient Education How to access health informa tion online - Detail Indication:BMI 32.0-32.9,adult Start:12-Oct-2018 Instruction Type:Patient Education Patient Instructions Indication:BMI 32.0-32.9,adult Start:12-Oct-2018 Instruction Type:Provider Instructions for Treatment How to access health informa tion online Indication:Non-smoker Start:28-Sep-2018 Instruction Type:Patient Education How to access health informa tion online - Detail Indication:Non-smoker Start:28-Sep-2018 Instruction Type:Patient Education Patient Instructions Indication:Non-smoker Start:28-Sep-2018 Instruction Type:Provider Instructions for Treatment How to access health informa tion online Indication:Bacterial sinusitis Start:13-May-2017 Instruction Type:Patient Education How to access health informa tion online - Detail Indication:Bacterial sinusitis Start:13-May-2017 Instruction Type:Patient Education Patient Instructions Indication:Bacterial sinusitis Start:13-May-2017 Instruction Type:Provider Instructions for Treatment How to access health informa tion online Indication:Bacterial sinusitis Start:23-Sep-2016 Instruction Type:Patient Education How to access health informa tion online - Detail Indication:Bacterial sinusitis Start:23-Sep-2016 Instruction Type:Patient Education Patient Instructions Indication:Bacterial sinusitis Start:23-Sep-2016 Instruction Type:Provider Instructions for Treatment How to access health informa tion online Indication:Rash Start:26-Feb-2016 Instruction Type:Patient Education How to access health informa tion online - Detail Indication:Rash Start:26-Feb-2016 Instruction Type:Patient Education Patient Instructions Indication:Rash Start:26-Feb-2016 Instruction Type:Provider Instructions for Treatment How to access health informa tion online Indication:Hematuria Start:05-Jun-2015 Instruction Type:Patient Education How to access health informa tion online - Detail Indication:Hematuria Start:05-Jun-2015 Instruction Type:Patient Education Patient Instructions Indication:Hematuria Start:05-Jun-2015 Instruction Type:Provider Instructions for Treatment Patient Instructions Indication:Gout Start:12-Jan-2014 Instruction Type:Provider Instructions for Treatment Patient Instructions Indication:Foot pain Start:17-Aug-2013 Instruction Type:Provider Instructions for Treatment [facility]; [facility] Work Phone: Instructions* Name Dates Details Patient Instructions Indication:Non-smoker Start:26-Mar-2022 Instruction Type:Provider Instructions for Treatment How to Access Health Informa tion Online using Patient Portal and [employer] Apps Indication:Non-smoker Start:26-Mar-2022 Instruction Type:Patient Education Patient Instructions Indication:HTN (hypertension), benign Start:18-Jun-2021 Instruction Type:Provider Instructions for Treatment Patient Instructions Indication:HTN (hypertension), benign Start:14-May-2021 Instruction Type:Provider Instructions for Treatment Patient Instructions Indication:BMI 32.0-32.9,adult Start:22-Apr-2021 Instruction Type:Provider Instructions for Treatment How to Access Health Informa tion Online using Patient Portal and [employer] Apps Indication:BMI 32.0-32.9,adult Start:22-Apr-2021 Instruction Type:Patient Education Patient Instructions Indication:Non-smoker Start:14-Apr-2021 Instruction Type:Provider Instructions for Treatment How to Access Health Informa tion Online using Patient Portal and [employer] Apps Indication:Non-smoker Start:14-Apr-2021 Instruction Type:Patient Education Patient Instructions Indication:BMI 32.0-32.9,adult Start:01-Jan-2021 Instruction Type:Provider Instructions for Treatment How to Access Health Informa tion Online using Patient Portal and [employer] Apps Indication:BMI 32.0-32.9,adult Start:01-Jan-2021 Instruction Type:Patient Education How to Access Health Informa tion Online using Patient Portal and [employer] Apps Indication:Non-smoker Start:14-Nov-2020 Instruction Type:Patient Education Patient Instructions Indication:Non-smoker Start:14-Nov-2020 Instruction Type:Provider Instructions for Treatment Patient Instructions Indication:Non-smoker Start:16-Sep-2020 Instruction Type:Provider Instructions for Treatment How to Access Health Informa tion Online using Patient Portal and [employer] Apps Indication:Non-smoker Start:16-Sep-2020 Instruction Type:Patient Education Patient Instructions Indication:Non-smoker Start:21-Aug-2020 Instruction Type:Provider Instructions for Treatment How to Access Health Informa tion Online using Patient Portal and [employer] Apps Indication:Non-smoker Start:21-Aug-2020 Instruction Type:Patient Education How to access health informa tion online Indication:Non-smoker Start:23-Nov-2019 Instruction Type:Patient Education How to access health informa tion online - Detail Indication:Non-smoker Start:23-Nov-2019 Instruction Type:Patient Education Patient Instructions Indication:Non-smoker Start:23-Nov-2019 Instruction Type:Provider Instructions for Treatment How to access health informa tion online Indication:Non-smoker Start:25-Jan-2019 Instruction Type:Patient Education How to access health informa tion online - Detail Indication:Non-smoker Start:25-Jan-2019 Instruction Type:Patient Education Patient Instructions Indication:Non-smoker Start:25-Jan-2019 Instruction Type:Provider Instructions for Treatment How to access health informa tion online Indication:Non-smoker Start:31-Oct-2018 Instruction Type:Patient Education How to access health informa tion online - Detail Indication:Non-smoker Start:31-Oct-2018 Instruction Type:Patient Education Patient Instructions Indication:Gout Start:31-Oct-2018 Instruction Type:Provider Instructions for Treatment How to access health informa tion online Indication:Non-smoker Start:19-Oct-2018 Instruction Type:Patient Education How to access health informa tion online - Detail Indication:Non-smoker Start:19-Oct-2018 Instruction Type:Patient Education Patient Instructions Indication:Elevated blood-pressure reading, without diagnosis of hypertension (Renamed from Elevated blood-pressure reading without diagnosis of hypertension) Start:19-Oct-2018 Instruction Type:Provider Instructions for Treatment How to access health informa tion online Indication:BMI 32.0-32.9,adult Start:12-Oct-2018 Instruction Type:Patient Education How to access health informa tion online - Detail Indication:BMI 32.0-32.9,adult Start:12-Oct-2018 Instruction Type:Patient Education Patient Instructions Indication:BMI 32.0-32.9,adult Start:12-Oct-2018 Instruction Type:Provider Instructions for Treatment How to access health informa tion online Indication:Non-smoker Start:28-Sep-2018 Instruction Type:Patient Education How to access health informa tion online - Detail Indication:Non-smoker Start:28-Sep-2018 Instruction Type:Patient Education Patient Instructions Indication:Non-smoker Start:28-Sep-2018 Instruction Type:Provider Instructions for Treatment How to access health informa tion online Indication:Bacterial sinusitis Start:13-May-2017 Instruction Type:Patient Education How to access health informa tion online - Detail Indication:Bacterial sinusitis Start:13-May-2017 Instruction Type:Patient Education Patient Instructions Indication:Bacterial sinusitis Start:13-May-2017 Instruction Type:Provider Instructions for Treatment How to access health informa tion online Indication:Bacterial sinusitis Start:23-Sep-2016 Instruction Type:Patient Education How to access health informa tion online - Detail Indication:Bacterial sinusitis Start:23-Sep-2016 Instruction Type:Patient Education Patient Instructions Indication:Bacterial sinusitis Start:23-Sep-2016 Instruction Type:Provider Instructions for Treatment How to access health informa tion online Indication:Rash Start:26-Feb-2016 Instruction Type:Patient Education How to access health informa tion online - Detail Indication:Rash Start:26-Feb-2016 Instruction Type:Patient Education Patient Instructions Indication:Rash Start:26-Feb-2016 Instruction Type:Provider Instructions for Treatment How to access health informa tion online Indication:Hematuria Start:05-Jun-2015 Instruction Type:Patient Education How to access health informa tion online - Detail Indication:Hematuria Start:05-Jun-2015 Instruction Type:Patient Education Patient Instructions Indication:Hematuria Start:05-Jun-2015 Instruction Type:Provider Instructions for Treatment Patient Instructions Indication:Gout Start:12-Jan-2014 Instruction Type:Provider Instructions for Treatment Patient Instructions Indication:Foot pain Start:17-Aug-2013 Instruction Type:Provider Instructions for Treatment [facility]; [facility] Work Phone: Instructions* Name Dates Details Patient Instructions Indication:BMI 32.0-32.9,adult Start:20-Aug-2022 Instruction Type:Provider Instructions for Treatment How to Access Health Informa tion Online using Patient Portal and [employer] Apps Indication:BMI 32.0-32.9,adult Start:20-Aug-2022 Instruction Type:Patient Education Patient Instructions Indication:Non-smoker Start:26-Mar-2022 Instruction Type:Provider Instructions for Treatment How to Access Health Informa tion Online using Patient Portal and [employer] Apps Indication:Non-smoker Start:26-Mar-2022 Instruction Type:Patient Education Patient Instructions Indication:HTN (hypertension), benign Start:18-Jun-2021 Instruction Type:Provider Instructions for Treatment Patient Instructions Indication:HTN (hypertension), benign Start:14-May-2021 Instruction Type:Provider Instructions for Treatment Patient Instructions Indication:BMI 32.0-32.9,adult Start:22-Apr-2021 Instruction Type:Provider Instructions for Treatment How to Access Health Informa tion Online using Patient Portal and [employer] Apps Indication:BMI 32.0-32.9,adult Start:22-Apr-2021 Instruction Type:Patient Education Patient Instructions Indication:Non-smoker Start:14-Apr-2021 Instruction Type:Provider Instructions for Treatment How to Access Health Informa tion Online using Patient Portal and [employer] Apps Indication:Non-smoker Start:14-Apr-2021 Instruction Type:Patient Education Patient Instructions Indication:BMI 32.0-32.9,adult Start:01-Jan-2021 Instruction Type:Provider Instructions for Treatment How to Access Health Informa tion Online using Patient Portal and [employer] Indication:BMI 32.0-32.9,adult Start:01-Jan-2021 Instruction Type:Patient Education How to Access Health Informa tion Online using Patient Portal and [employer] Apps Indication:Non-smoker Start:14-Nov-2020 Instruction Type:Patient Education Patient Instructions Indication:Non-smoker Start:14-Nov-2020 Instruction Type:Provider Instructions for Treatment Patient Instructions Indication:Non-smoker Start:16-Sep-2020 Instruction Type:Provider Instructions for Treatment How to Access Health Informa tion Online using Patient Portal and [employer] Apps Indication:Non-smoker Start:16-Sep-2020 Instruction Type:Patient Education Patient Instructions Indication:Non-smoker Start:21-Aug-2020 Instruction Type:Provider Instructions for Treatment How to Access Health Informa tion Online using Patient Portal and [employer] Apps Indication:Non-smoker Start:21-Aug-2020 Instruction Type:Patient Education How to access health informa tion online Indication:Non-smoker Start:23-Nov-2019 Instruction Type:Patient Education How to access health informa tion online - Detail Indication:Non-smoker Start:23-Nov-2019 Instruction Type:Patient Education Patient Instructions Indication:Non-smoker Start:23-Nov-2019 Instruction Type:Provider Instructions for Treatment How to access health informa tion online Indication:Non-smoker Start:25-Jan-2019 Instruction Type:Patient Education How to access health informa tion online - Detail Indication:Non-smoker Start:25-Jan-2019 Instruction Type:Patient Education Patient Instructions Indication:Non-smoker Start:25-Jan-2019 Instruction Type:Provider Instructions for Treatment How to access health informa tion online Indication:Non-smoker Start:31-Oct-2018 Instruction Type:Patient Education How to access health informa tion online - Detail Indication:Non-smoker Start:31-Oct-2018 Instruction Type:Patient Education Patient Instructions Indication:Gout Start:31-Oct-2018 Instruction Type:Provider Instructions for Treatment How to access health informa tion online Indication:Non-smoker Start:19-Oct-2018 Instruction Type:Patient Education How to access health informa tion online - Detail Indication:Non-smoker Start:19-Oct-2018 Instruction Type:Patient Education Patient Instructions Indication:Elevated blood-pressure reading, without diagnosis of hypertension (Renamed from Elevated blood-pressure reading without diagnosis of hypertension) Start:19-Oct-2018 Instruction Type:Provider Instructions for Treatment How to access health informa tion online Indication:BMI 32.0-32.9,adult Start:12-Oct-2018 Instruction Type:Patient Education How to access health informa tion online - Detail Indication:BMI 32.0-32.9,adult Start:12-Oct-2018 Instruction Type:Patient Education Patient Instructions Indication:BMI 32.0-32.9,adult Start:12-Oct-2018 Instruction Type:Provider Instructions for Treatment How to access health informa tion online Indication:Non-smoker Start:28-Sep-2018 Instruction Type:Patient Education How to access health informa tion online - Detail Indication:Non-smoker Start:28-Sep-2018 Instruction Type:Patient Education Patient Instructions Indication:Non-smoker Start:28-Sep-2018 Instruction Type:Provider Instructions for Treatment How to access health informa tion online Indication:Bacterial sinusitis Start:13-May-2017 Instruction Type:Patient Education How to access health informa tion online - Detail Indication:Bacterial sinusitis Start:13-May-2017 Instruction Type:Patient Education Patient Instructions Indication:Bacterial sinusitis Start:13-May-2017 Instruction Type:Provider Instructions for Treatment How to access health informa tion online Indication:Bacterial sinusitis Start:23-Sep-2016 Instruction Type:Patient Education How to access health informa tion online - Detail Indication:Bacterial sinusitis Start:23-Sep-2016 Instruction Type:Patient Education Patient Instructions Indication:Bacterial sinusitis Start:23-Sep-2016 Instruction Type:Provider Instructions for Treatment How to access health informa tion online Indication:Rash Start:26-Feb-2016 Instruction Type:Patient Education How to access health informa tion online - Detail Indication:Rash Start:26-Feb-2016 Instruction Type:Patient Education Patient Instructions Indication:Rash Start:26-Feb-2016 Instruction Type:Provider Instructions for Treatment How to access health informa tion online Indication:Hematuria Start:05-Jun-2015 Instruction Type:Patient Education How to access health informa tion online - Detail Indication:Hematuria Start:05-Jun-2015 Instruction Type:Patient Education Patient Instructions Indication:Hematuria Start:05-Jun-2015 Instruction Type:Provider Instructions for Treatment Patient Instructions Indication:Gout Start:12-Jan-2014 Instruction Type:Provider Instructions for Treatment Patient Instructions Indication:Foot pain Start:17-Aug-2013 Instruction Type:Provider Instructions for Treatment [facility]; [facility] Work Phone: Instructions* Name Dates Details Patient Instructions Indication:BMI 32.0-32.9,adult Start:20-Aug-2022 Instruction Type:Provider Instructions for Treatment How to Access Health Informa tion Online using Patient Portal and [employer] Apps Indication:BMI 32.0-32.9,adult Start:20-Aug-2022 Instruction Type:Patient Education Patient Instructions Indication:Non-smoker Start:26-Mar-2022 Instruction Type:Provider Instructions for Treatment How to Access Health Informa tion Online using Patient Portal and [employer] Apps Indication:Non-smoker Start:26-Mar-2022 Instruction Type:Patient Education Patient Instructions Indication:HTN (hypertension), benign Start:18-Jun-2021 Instruction Type:Provider Instructions for Treatment Patient Instructions Indication:HTN (hypertension), benign Start:14-May-2021 Instruction Type:Provider Instructions for Treatment Patient Instructions Indication:BMI 32.0-32.9,adult Start:22-Apr-2021 Instruction Type:Provider Instructions for Treatment How to Access Health Informa tion Online using Patient Portal and [employer] Apps Indication:BMI 32.0-32.9,adult Start:22-Apr-2021 Instruction Type:Patient Education Patient Instructions Indication:Non-smoker Start:14-Apr-2021 Instruction Type:Provider Instructions for Treatment How to Access Health Informa tion Online using Patient Portal and [employer] Apps Indication:Non-smoker Start:14-Apr-2021 Instruction Type:Patient Education Patient Instructions Indication:BMI 32.0-32.9,adult Start:01-Jan-2021 Instruction Type:Provider Instructions for Treatment How to Access Health Informa tion Online using Patient Portal and [employer] Apps Indication:BMI 32.0-32.9,adult Start:01-Jan-2021 Instruction Type:Patient Education How to Access Health Informa tion Online using Patient Portal and [employer] Apps Indication:Non-smoker Start:14-Nov-2020 Instruction Type:Patient Education Patient Instructions Indication:Non-smoker Start:14-Nov-2020 Instruction Type:Provider Instructions for Treatment Patient Instructions Indication:Non-smoker Start:16-Sep-2020 Instruction Type:Provider Instructions for Treatment How to Access Health Informa tion Online using Patient Portal and [employer] Apps Indication:Non-smoker Start:16-Sep-2020 Instruction Type:Patient Education Patient Instructions Indication:Non-smoker Start:21-Aug-2020 Instruction Type:Provider Instructions for Treatment How to Access Health Informa tion Online using Patient Portal and [employer] Apps Indication:Non-smoker Start:21-Aug-2020 Instruction Type:Patient Education How to access health informa tion online Indication:Non-smoker Start:23-Nov-2019 Instruction Type:Patient Education How to access health informa tion online - Detail Indication:Non-smoker Start:23-Nov-2019 Instruction Type:Patient Education Patient Instructions Indication:Non-smoker Start:23-Nov-2019 Instruction Type:Provider Instructions for Treatment How to access health informa tion online Indication:Non-smoker Start:25-Jan-2019 Instruction Type:Patient Education How to access health informa tion online - Detail Indication:Non-smoker Start:25-Jan-2019 Instruction Type:Patient Education Patient Instructions Indication:Non-smoker Start:25-Jan-2019 Instruction Type:Provider Instructions for Treatment How to access health informa tion online Indication:Non-smoker Start:31-Oct-2018 Instruction Type:Patient Education How to access health informa tion online - Detail Indication:Non-smoker Start:31-Oct-2018 Instruction Type:Patient Education Patient Instructions Indication:Gout Start:31-Oct-2018 Instruction Type:Provider Instructions for Treatment How to access health informa tion online Indication:Non-smoker Start:19-Oct-2018 Instruction Type:Patient Education How to access health informa tion online - Detail Indication:Non-smoker Start:19-Oct-2018 Instruction Type:Patient Education Patient Instructions Indication:Elevated blood-pressure reading, without diagnosis of hypertension (Renamed from Elevated blood-pressure reading without diagnosis of hypertension) Start:19-Oct-2018 Instruction Type:Provider Instructions for Treatment How to access health informa tion online Indication:BMI 32.0-32.9,adult Start:12-Oct-2018 Instruction Type:Patient Education How to access health informa tion online - Detail Indication:BMI 32.0-32.9,adult Start:12-Oct-2018 Instruction Type:Patient Education Patient Instructions Indication:BMI 32.0-32.9,adult Start:12-Oct-2018 Instruction Type:Provider Instructions for Treatment How to access health informa tion online Indication:Non-smoker Start:28-Sep-2018 Instruction Type:Patient Education How to access health informa tion online - Detail Indication:Non-smoker Start:28-Sep-2018 Instruction Type:Patient Education Patient Instructions Indication:Non-smoker Start:28-Sep-2018 Instruction Type:Provider Instructions for Treatment How to access health informa tion online Indication:Bacterial sinusitis Start:13-May-2017 Instruction Type:Patient Education How to access health informa tion online - Detail Indication:Bacterial sinusitis Start:13-May-2017 Instruction Type:Patient Education Patient Instructions Indication:Bacterial sinusitis Start:13-May-2017 Instruction Type:Provider Instructions for Treatment How to access health informa tion online Indication:Bacterial sinusitis Start:23-Sep-2016 Instruction Type:Patient Education How to access health informa tion online - Detail Indication:Bacterial sinusitis Start:23-Sep-2016 Instruction Type:Patient Education Patient Instructions Indication:Bacterial sinusitis Start:23-Sep-2016 Instruction Type:Provider Instructions for Treatment How to access health informa tion online Indication:Rash Start:26-Feb-2016 Instruction Type:Patient Education How to access health informa tion online - Detail Indication:Rash Start:26-Feb-2016 Instruction Type:Patient Education Patient Instructions Indication:Rash Start:26-Feb-2016 Instruction Type:Provider Instructions for Treatment How to access health informa tion online Indication:Hematuria Start:05-Jun-2015 Instruction Type:Patient Education How to access health informa tion online - Detail Indication:Hematuria Start:05-Jun-2015 Instruction Type:Patient Education Patient Instructions Indication:Hematuria Start:05-Jun-2015 Instruction Type:Provider Instructions for Treatment Patient Instructions Indication:Gout Start:12-Jan-2014 Instruction Type:Provider Instructions for Treatment Patient Instructions Indication:Foot pain Start:17-Aug-2013 Instruction Type:Provider Instructions for Treatment [facility]; [facility] Work Phone: Instructions* Name Dates Details Patient Instructions Indication:BMI 32.0-32.9,adult Start:20-Aug-2022 Instruction Type:Provider Instructions for Treatment How to Access Health Informa tion Online using Patient Portal and [employer] Apps Indication:BMI 32.0-32.9,adult Start:20-Aug-2022 Instruction Type:Patient Education Patient Instructions Indication:Non-smoker Start:26-Mar-2022 Instruction Type:Provider Instructions for Treatment How to Access Health Informa tion Online using Patient Portal and [employer] Apps Indication:Non-smoker Start:26-Mar-2022 Instruction Type:Patient Education Patient Instructions Indication:HTN (hypertension), benign Start:18-Jun-2021 Instruction Type:Provider Instructions for Treatment Patient Instructions Indication:HTN (hypertension), benign Start:14-May-2021 Instruction Type:Provider Instructions for Treatment Patient Instructions Indication:BMI 32.0-32.9,adult Start:22-Apr-2021 Instruction Type:Provider Instructions for Treatment How to Access Health Informa tion Online using Patient Portal and [employer] Apps Indication:BMI 32.0-32.9,adult Start:22-Apr-2021 Instruction Type:Patient Education Patient Instructions Indication:Non-smoker Start:14-Apr-2021 Instruction Type:Provider Instructions for Treatment How to Access Health Informa tion Online using Patient Portal and [employer] Apps Indication:Non-smoker Start:14-Apr-2021 Instruction Type:Patient Education Patient Instructions Indication:BMI 32.0-32.9,adult Start:01-Jan-2021 Instruction Type:Provider Instructions for Treatment How to Access Health Informa tion Online using Patient Portal and [employer] Apps Indication:BMI 32.0-32.9,adult Start:01-Jan-2021 Instruction Type:Patient Education How to Access Health Informa tion Online using Patient Portal and [employer] Apps Indication:Non-smoker Start:14-Nov-2020 Instruction Type:Patient Education Patient Instructions Indication:Non-smoker Start:14-Nov-2020 Instruction Type:Provider Instructions for Treatment Patient Instructions Indication:Non-smoker Start:16-Sep-2020 Instruction Type:Provider Instructions for Treatment How to Access Health Informa tion Online using Patient Portal and [employer] Apps Indication:Non-smoker Start:16-Sep-2020 Instruction Type:Patient Education Patient Instructions Indication:Non-smoker Start:21-Aug-2020 Instruction Type:Provider Instructions for Treatment How to Access Health Informa tion Online using Patient Portal and [employer] Apps Indication:Non-smoker Start:21-Aug-2020 Instruction Type:Patient Education How to access health informa tion online Indication:Non-smoker Start:23-Nov-2019 Instruction Type:Patient Education How to access health informa tion online - Detail Indication:Non-smoker Start:23-Nov-2019 Instruction Type:Patient Education Patient Instructions Indication:Non-smoker Start:23-Nov-2019 Instruction Type:Provider Instructions for Treatment How to access health informa tion online Indication:Non-smoker Start:25-Jan-2019 Instruction Type:Patient Education How to access health informa tion online - Detail Indication:Non-smoker Start:25-Jan-2019 Instruction Type:Patient Education Patient Instructions Indication:Non-smoker Start:25-Jan-2019 Instruction Type:Provider Instructions for Treatment How to access health informa tion online Indication:Non-smoker Start:31-Oct-2018 Instruction Type:Patient Education How to access health informa tion online - Detail Indication:Non-smoker Start:31-Oct-2018 Instruction Type:Patient Education Patient Instructions Indication:Gout Start:31-Oct-2018 Instruction Type:Provider Instructions for Treatment How to access health informa tion online Indication:Non-smoker Start:19-Oct-2018 Instruction Type:Patient Education How to access health informa tion online - Detail Indication:Non-smoker Start:19-Oct-2018 Instruction Type:Patient Education Patient Instructions Indication:Elevated blood-pressure reading, without diagnosis of hypertension (Renamed from Elevated blood-pressure reading without diagnosis of hypertension) Start:19-Oct-2018 Instruction Type:Provider Instructions for Treatment How to access health informa tion online Indication:BMI 32.0-32.9,adult Start:12-Oct-2018 Instruction Type:Patient Education How to access health informa tion online - Detail Indication:BMI 32.0-32.9,adult Start:12-Oct-2018 Instruction Type:Patient Education Patient Instructions Indication:BMI 32.0-32.9,adult Start:12-Oct-2018 Instruction Type:Provider Instructions for Treatment How to access health informa tion online Indication:Non-smoker Start:28-Sep-2018 Instruction Type:Patient Education How to access health informa tion online - Detail Indication:Non-smoker Start:28-Sep-2018 Instruction Type:Patient Education Patient Instructions Indication:Non-smoker Start:28-Sep-2018 Instruction Type:Provider Instructions for Treatment How to access health informa tion online Indication:Bacterial sinusitis Start:13-May-2017 Instruction Type:Patient Education How to access health informa tion online - Detail Indication:Bacterial sinusitis Start:13-May-2017 Instruction Type:Patient Education Patient Instructions Indication:Bacterial sinusitis Start:13-May-2017 Instruction Type:Provider Instructions for Treatment How to access health informa tion online Indication:Bacterial sinusitis Start:23-Sep-2016 Instruction Type:Patient Education How to access health informa tion online - Detail Indication:Bacterial sinusitis Start:23-Sep-2016 Instruction Type:Patient Education Patient Instructions Indication:Bacterial sinusitis Start:23-Sep-2016 Instruction Type:Provider Instructions for Treatment How to access health informa tion online Indication:Rash Start:26-Feb-2016 Instruction Type:Patient Education How to access health informa tion online - Detail Indication:Rash Start:26-Feb-2016 Instruction Type:Patient Education Patient Instructions Indication:Rash Start:26-Feb-2016 Instruction Type:Provider Instructions for Treatment How to access health informa tion online Indication:Hematuria Start:05-Jun-2015 Instruction Type:Patient Education How to access health informa tion online - Detail Indication:Hematuria Start:05-Jun-2015 Instruction Type:Patient Education Patient Instructions Indication:Hematuria Start:05-Jun-2015 Instruction Type:Provider Instructions for Treatment Patient Instructions Indication:Gout Start:12-Jan-2014 Instruction Type:Provider Instructions for Treatment Patient Instructions Indication:Foot pain Start:17-Aug-2013 Instruction Type:Provider Instructions for Treatment [facility]; [facility] Work Phone: Instructions* Name Dates Details Patient Instructions Indication:Non-smoker Start:04-Sep-2022 Instruction Type:Provider Instructions for Treatment How to Access Health Informa tion Online using Patient Portal and [employer] Apps Indication:Non-smoker Start:04-Sep-2022 Instruction Type:Patient Education Patient Instructions Indication:BMI 32.0-32.9,adult Start:20-Aug-2022 Instruction Type:Provider Instructions for Treatment How to Access Health Informa tion Online using Patient Portal and [employer] Republican Apps Indication:BMI 32.0-32.9,adult Start:20-Aug-2022 Instruction Type:Patient Education Patient Instructions Indication:Non-smoker Start:26-Mar-2022 Instruction Type:Provider Instructions for Treatment How to Access Health Informa tion Online using Patient Portal and [employer] Apps Indication:Non-smoker Start:26-Mar-2022 Instruction Type:Patient Education Patient Instructions Indication:HTN (hypertension), benign Start:18-Jun-2021 Instruction Type:Provider Instructions for Treatment Patient Instructions Indication:HTN (hypertension), benign Start:14-May-2021 Instruction Type:Provider Instructions for Treatment Patient Instructions Indication:BMI 32.0-32.9,adult Start:22-Apr-2021 Instruction Type:Provider Instructions for Treatment How to Access Health Informa tion Online using Patient Portal and [employer] Apps Indication:BMI 32.0-32.9,adult Start:22-Apr-2021 Instruction Type:Patient Education Patient Instructions Indication:Non-smoker Start:14-Apr-2021 Instruction Type:Provider Instructions for Treatment How to Access Health Informa tion Online using Patient Portal and [employer] Apps Indication:Non-smoker Start:14-Apr-2021 Instruction Type:Patient Education Patient Instructions Indication:BMI 32.0-32.9,adult Start:01-Jan-2021 Instruction Type:Provider Instructions for Treatment How to Access Health Informa tion Online using Patient Portal and [employer] Apps Indication:BMI 32.0-32.9,adult Start:01-Jan-2021 Instruction Type:Patient Education How to Access Health Informa tion Online using Patient Portal and [employer] Apps Indication:Non-smoker Start:14-Nov-2020 Instruction Type:Patient Education Patient Instructions Indication:Non-smoker Start:14-Nov-2020 Instruction Type:Provider Instructions for Treatment Patient Instructions Indication:Non-smoker Start:16-Sep-2020 Instruction Type:Provider Instructions for Treatment How to Access Health Informa tion Online using Patient Portal and [employer] Apps Indication:Non-smoker Start:16-Sep-2020 Instruction Type:Patient Education Patient Instructions Indication:Non-smoker Start:21-Aug-2020 Instruction Type:Provider Instructions for Treatment How to Access Health Informa tion Online using Patient Portal and [employer] Apps Indication:Non-smoker Start:21-Aug-2020 Instruction Type:Patient Education How to access health informa tion online Indication:Non-smoker Start:23-Nov-2019 Instruction Type:Patient Education How to access health informa tion online - Detail Indication:Non-smoker Start:23-Nov-2019 Instruction Type:Patient Education Patient Instructions Indication:Non-smoker Start:23-Nov-2019 Instruction Type:Provider Instructions for Treatment How to access health informa tion online Indication:Non-smoker Start:25-Jan-2019 Instruction Type:Patient Education How to access health informa tion online - Detail Indication:Non-smoker Start:25-Jan-2019 Instruction Type:Patient Education Patient Instructions Indication:Non-smoker Start:25-Jan-2019 Instruction Type:Provider Instructions for Treatment How to access health informa tion online Indication:Non-smoker Start:31-Oct-2018 Instruction Type:Patient Education How to access health informa tion online - Detail Indication:Non-smoker Start:31-Oct-2018 Instruction Type:Patient Education Patient Instructions Indication:Gout Start:31-Oct-2018 Instruction Type:Provider Instructions for Treatment How to access health informa tion online Indication:Non-smoker Start:19-Oct-2018 Instruction Type:Patient Education How to access health informa tion online - Detail Indication:Non-smoker Start:19-Oct-2018 Instruction Type:Patient Education Patient Instructions Indication:Elevated blood-pressure reading, without diagnosis of hypertension (Renamed from Elevated blood-pressure reading without diagnosis of hypertension) Start:19-Oct-2018 Instruction Type:Provider Instructions for Treatment How to access health informa tion online Indication:BMI 32.0-32.9,adult Start:12-Oct-2018 Instruction Type:Patient Education How to access health informa tion online - Detail Indication:BMI 32.0-32.9,adult Start:12-Oct-2018 Instruction Type:Patient Education Patient Instructions Indication:BMI 32.0-32.9,adult Start:12-Oct-2018 Instruction Type:Provider Instructions for Treatment How to access health informa tion online Indication:Non-smoker Start:28-Sep-2018 Instruction Type:Patient Education How to access health informa tion online - Detail Indication:Non-smoker Start:28-Sep-2018 Instruction Type:Patient Education Patient Instructions Indication:Non-smoker Start:28-Sep-2018 Instruction Type:Provider Instructions for Treatment How to access health informa tion online Indication:Bacterial sinusitis Start:13-May-2017 Instruction Type:Patient Education How to access health informa tion online - Detail Indication:Bacterial sinusitis Start:13-May-2017 Instruction Type:Patient Education Patient Instructions Indication:Bacterial sinusitis Start:13-May-2017 Instruction Type:Provider Instructions for Treatment How to access health informa tion online Indication:Bacterial sinusitis Start:23-Sep-2016 Instruction Type:Patient Education How to access health informa tion online - Detail Indication:Bacterial sinusitis Start:23-Sep-2016 Instruction Type:Patient Education Patient Instructions Indication:Bacterial sinusitis Start:23-Sep-2016 Instruction Type:Provider Instructions for Treatment How to access health informa tion online Indication:Rash Start:26-Feb-2016 Instruction Type:Patient Education How to access health informa tion online - Detail Indication:Rash Start:26-Feb-2016 Instruction Type:Patient Education Patient Instructions Indication:Rash Start:26-Feb-2016 Instruction Type:Provider Instructions for Treatment How to access health informa tion online Indication:Hematuria Start:05-Jun-2015 Instruction Type:Patient Education How to access health informa tion online - Detail Indication:Hematuria Start:05-Jun-2015 Instruction Type:Patient Education Patient Instructions Indication:Hematuria Start:05-Jun-2015 Instruction Type:Provider Instructions for Treatment Patient Instructions Indication:Gout Start:12-Jan-2014 Instruction Type:Provider Instructions for Treatment Patient Instructions Indication:Foot pain Start:17-Aug-2013 Instruction Type:Provider Instructions for Treatment [facility]; [facility] Work Phone: Instructions* Name Dates Details Patient Instructions Indication:Non-smoker Start:04-Sep-2022 Instruction Type:Provider Instructions for Treatment How to Access Health Informa tion Online using Patient Portal and 3rd [employer] Apps Indication:Non-smoker Start:04-Sep-2022 Instruction Type:Patient Education Patient Instructions Indication:BMI 32.0-32.9,adult Start:20-Aug-2022 Instruction Type:Provider Instructions for Treatment How to Access Health Informa tion Online using Patient Portal and 3rd [employer] Apps Indication:BMI 32.0-32.9,adult Start:20-Aug-2022 Instruction Type:Patient Education Patient Instructions Indication:Non-smoker Start:26-Mar-2022 Instruction Type:Provider Instructions for Treatment How to Access Health Informa tion Online using Patient Portal and 3rd [employer] Apps Indication:Non-smoker Start:26-Mar-2022 Instruction Type:Patient Education Patient Instructions Indication:HTN (hypertension), benign Start:18-Jun-2021 Instruction Type:Provider Instructions for Treatment Patient Instructions Indication:HTN (hypertension), benign Start:14-May-2021 Instruction Type:Provider Instructions for Treatment Patient Instructions Indication:BMI 32.0-32.9,adult Start:22-Apr-2021 Instruction Type:Provider Instructions for Treatment How to Access Health Informa tion Online using Patient Portal and 3rd [employer] Apps Indication:BMI 32.0-32.9,adult Start:22-Apr-2021 Instruction Type:Patient Education Patient Instructions Indication:Non-smoker Start:14-Apr-2021 Instruction Type:Provider Instructions for Treatment How to Access Health Informa tion Online using Patient Portal and 3rd [employer] Apps Indication:Non-smoker Start:14-Apr-2021 Instruction Type:Patient Education Patient Instructions Indication:BMI 32.0-32.9,adult Start:01-Jan-2021 Instruction Type:Provider Instructions for Treatment How to Access Health Informa tion Online using Patient Portal and 3rd [employer] Apps Indication:BMI 32.0-32.9,adult Start:01-Jan-2021 Instruction Type:Patient Education How to Access Health Informa tion Online using Patient Portal and 3rd Republican Apps Indication:Non-smoker Start:14-Nov-2020 Instruction Type:Patient Education Patient Instructions Indication:Non-smoker Start:14-Nov-2020 Instruction Type:Provider Instructions for Treatment Patient Instructions Indication:Non-smoker Start:16-Sep-2020 Instruction Type:Provider Instructions for Treatment How to Access Health Informa tion Online using Patient Portal and 3rd [employer] Apps Indication:Non-smoker Start:16-Sep-2020 Instruction Type:Patient Education Patient Instructions Indication:Non-smoker Start:21-Aug-2020 Instruction Type:Provider Instructions for Treatment How to Access Health Informa tion Online using Patient Portal and 3rd [employer] Apps Indication:Non-smoker Start:21-Aug-2020 Instruction Type:Patient Education How to access health informa tion online Indication:Non-smoker Start:23-Nov-2019 Instruction Type:Patient Education How to access health informa tion online - Detail Indication:Non-smoker Start:23-Nov-2019 Instruction Type:Patient Education Patient Instructions Indication:Non-smoker Start:23-Nov-2019 Instruction Type:Provider Instructions for Treatment How to access health informa tion online Indication:Non-smoker Start:25-Jan-2019 Instruction Type:Patient Education How to access health informa tion online - Detail Indication:Non-smoker Start:25-Jan-2019 Instruction Type:Patient Education Patient Instructions Indication:Non-smoker Start:25-Jan-2019 Instruction Type:Provider Instructions for Treatment How to access health informa tion online Indication:Non-smoker Start:31-Oct-2018 Instruction Type:Patient Education How to access health informa tion online - Detail Indication:Non-smoker Start:31-Oct-2018 Instruction Type:Patient Education Patient Instructions Indication:Gout Start:31-Oct-2018 Instruction Type:Provider Instructions for Treatment How to access health informa tion online Indication:Non-smoker Start:19-Oct-2018 Instruction Type:Patient Education How to access health informa tion online - Detail Indication:Non-smoker Start:19-Oct-2018 Instruction Type:Patient Education Patient Instructions Indication:Elevated blood-pressure reading, without diagnosis of hypertension (Renamed from Elevated blood-pressure reading without diagnosis of hypertension) Start:19-Oct-2018 Instruction Type:Provider Instructions for Treatment How to access health informa tion online Indication:BMI 32.0-32.9,adult Start:12-Oct-2018 Instruction Type:Patient Education How to access health informa tion online - Detail Indication:BMI 32.0-32.9,adult Start:12-Oct-2018 Instruction Type:Patient Education Patient Instructions Indication:BMI 32.0-32.9,adult Start:12-Oct-2018 Instruction Type:Provider Instructions for Treatment How to access health informa tion online Indication:Non-smoker Start:28-Sep-2018 Instruction Type:Patient Education How to access health informa tion online - Detail Indication:Non-smoker Start:28-Sep-2018 Instruction Type:Patient Education Patient Instructions Indication:Non-smoker Start:28-Sep-2018 Instruction Type:Provider Instructions for Treatment How to access health informa tion online Indication:Bacterial sinusitis Start:13-May-2017 Instruction Type:Patient Education How to access health informa tion online - Detail Indication:Bacterial sinusitis Start:13-May-2017 Instruction Type:Patient Education Patient Instructions Indication:Bacterial sinusitis Start:13-May-2017 Instruction Type:Provider Instructions for Treatment How to access health informa tion online Indication:Bacterial sinusitis Start:23-Sep-2016 Instruction Type:Patient Education How to access health informa tion online - Detail Indication:Bacterial sinusitis Start:23-Sep-2016 Instruction Type:Patient Education Patient Instructions Indication:Bacterial sinusitis Start:23-Sep-2016 Instruction Type:Provider Instructions for Treatment How to access health informa tion online Indication:Rash Start:26-Feb-2016 Instruction Type:Patient Education How to access health informa tion online - Detail Indication:Rash Start:26-Feb-2016 Instruction Type:Patient Education Patient Instructions Indication:Rash Start:26-Feb-2016 Instruction Type:Provider Instructions for Treatment How to access health informa tion online Indication:Hematuria Start:05-Jun-2015 Instruction Type:Patient Education How to access health informa tion online - Detail Indication:Hematuria Start:05-Jun-2015 Instruction Type:Patient Education Patient Instructions Indication:Hematuria Start:05-Jun-2015 Instruction Type:Provider Instructions for Treatment Patient Instructions Indication:Gout Start:12-Jan-2014 Instruction Type:Provider Instructions for Treatment Patient Instructions Indication:Foot pain Start:17-Aug-2013 Instruction Type:Provider Instructions for Treatment [facility]; [facility] Work Phone: Instructions* Name Dates Details How to Access Health Informa tion Online using Patient Portal and 3rd Republican Apps Indication:BMI 32.0-32.9,adult Start:24-Mar-2023 Instruction Type:Patient Education Patient Instructions Indication:BMI 32.0-32.9,adult Start:24-Mar-2023 Instruction Type:Provider Instructions for Treatment Patient Instructions Indication:Non-smoker Start:04-Sep-2022 Instruction Type:Provider Instructions for Treatment How to Access Health Informa tion Online using Patient Portal and 3rd [employer] Apps Indication:Non-smoker Start:04-Sep-2022 Instruction Type:Patient Education Patient Instructions Indication:BMI 32.0-32.9,adult Start:20-Aug-2022 Instruction Type:Provider Instructions for Treatment How to Access Health Informa tion Online using Patient Portal and 3rd [employer] Apps Indication:BMI 32.0-32.9,adult Start:20-Aug-2022 Instruction Type:Patient Education Patient Instructions Indication:Non-smoker Start:26-Mar-2022 Instruction Type:Provider Instructions for Treatment How to Access Health Informa tion Online using Patient Portal and 3rd [employer] Apps Indication:Non-smoker Start:26-Mar-2022 Instruction Type:Patient Education Patient Instructions Indication:HTN (hypertension), benign Start:18-Jun-2021 Instruction Type:Provider Instructions for Treatment Patient Instructions Indication:HTN (hypertension), benign Start:14-May-2021 Instruction Type:Provider Instructions for Treatment Patient Instructions Indication:BMI 32.0-32.9,adult Start:22-Apr-2021 Instruction Type:Provider Instructions for Treatment How to Access Health Informa tion Online using Patient Portal and 3rd Republican Apps Indication:BMI 32.0-32.9,adult Start:22-Apr-2021 Instruction Type:Patient Education Patient Instructions Indication:Non-smoker Start:14-Apr-2021 Instruction Type:Provider Instructions for Treatment How to Access Health Informa tion Online using Patient Portal and 3rd [employer] Apps Indication:Non-smoker Start:14-Apr-2021 Instruction Type:Patient Education Patient Instructions Indication:BMI 32.0-32.9,adult Start:01-Jan-2021 Instruction Type:Provider Instructions for Treatment How to Access Health Informa tion Online using Patient Portal and 3rd [employer] Apps Indication:BMI 32.0-32.9,adult Start:01-Jan-2021 Instruction Type:Patient Education How to Access Health Informa tion Online using Patient Portal and 3rd [employer] Apps Indication:Non-smoker Start:14-Nov-2020 Instruction Type:Patient Education Patient Instructions Indication:Non-smoker Start:14-Nov-2020 Instruction Type:Provider Instructions for Treatment Patient Instructions Indication:Non-smoker Start:16-Sep-2020 Instruction Type:Provider Instructions for Treatment How to Access Health Informa tion Online using Patient Portal and 3rd [employer] Apps Indication:Non-smoker Start:16-Sep-2020 Instruction Type:Patient Education Patient Instructions Indication:Non-smoker Start:21-Aug-2020 Instruction Type:Provider Instructions for Treatment How to Access Health Informa tion Online using Patient Portal and 3rd [employer] Apps Indication:Non-smoker Start:21-Aug-2020 Instruction Type:Patient Education How to access health informa tion online Indication:Non-smoker Start:23-Nov-2019 Instruction Type:Patient Education How to access health informa tion online - Detail Indication:Non-smoker Start:23-Nov-2019 Instruction Type:Patient Education Patient Instructions Indication:Non-smoker Start:23-Nov-2019 Instruction Type:Provider Instructions for Treatment How to access health informa tion online Indication:Non-smoker Start:25-Jan-2019 Instruction Type:Patient Education How to access health informa tion online - Detail Indication:Non-smoker Start:25-Jan-2019 Instruction Type:Patient Education Patient Instructions Indication:Non-smoker Start:25-Jan-2019 Instruction Type:Provider Instructions for Treatment How to access health informa tion online Indication:Non-smoker Start:31-Oct-2018 Instruction Type:Patient Education How to access health informa tion online - Detail Indication:Non-smoker Start:31-Oct-2018 Instruction Type:Patient Education Patient Instructions Indication:Gout Start:31-Oct-2018 Instruction Type:Provider Instructions for Treatment How to access health informa tion online Indication:Non-smoker Start:19-Oct-2018 Instruction Type:Patient Education How to access health informa tion online - Detail Indication:Non-smoker Start:19-Oct-2018 Instruction Type:Patient Education Patient Instructions Indication:Elevated blood-pressure reading, without diagnosis of hypertension (Renamed from Elevated blood-pressure reading without diagnosis of hypertension) Start:19-Oct-2018 Instruction Type:Provider Instructions for Treatment How to access health informa tion online Indication:BMI 32.0-32.9,adult Start:12-Oct-2018 Instruction Type:Patient Education How to access health informa tion online - Detail Indication:BMI 32.0-32.9,adult Start:12-Oct-2018 Instruction Type:Patient Education Patient Instructions Indication:BMI 32.0-32.9,adult Start:12-Oct-2018 Instruction Type:Provider Instructions for Treatment How to access health informa tion online Indication:Non-smoker Start:28-Sep-2018 Instruction Type:Patient Education How to access health informa tion online - Detail Indication:Non-smoker Start:28-Sep-2018 Instruction Type:Patient Education Patient Instructions Indication:Non-smoker Start:28-Sep-2018 Instruction Type:Provider Instructions for Treatment How to access health informa tion online Indication:Bacterial sinusitis Start:13-May-2017 Instruction Type:Patient Education How to access health informa tion online - Detail Indication:Bacterial sinusitis Start:13-May-2017 Instruction Type:Patient Education Patient Instructions Indication:Bacterial sinusitis Start:13-May-2017 Instruction Type:Provider Instructions for Treatment How to access health informa tion online Indication:Bacterial sinusitis Start:23-Sep-2016 Instruction Type:Patient Education How to access health informa tion online - Detail Indication:Bacterial sinusitis Start:23-Sep-2016 Instruction Type:Patient Education Patient Instructions Indication:Bacterial sinusitis Start:23-Sep-2016 Instruction Type:Provider Instructions for Treatment How to access health informa tion online Indication:Rash Start:26-Feb-2016 Instruction Type:Patient Education How to access health informa tion online - Detail Indication:Rash Start:26-Feb-2016 Instruction Type:Patient Education Patient Instructions Indication:Rash Start:26-Feb-2016 Instruction Type:Provider Instructions for Treatment How to access health informa tion online Indication:Hematuria Start:05-Jun-2015 Instruction Type:Patient Education How to access health informa tion online - Detail Indication:Hematuria Start:05-Jun-2015 Instruction Type:Patient Education Patient Instructions Indication:Hematuria Start:05-Jun-2015 Instruction Type:Provider Instructions for Treatment Patient Instructions Indication:Gout Start:12-Jan-2014 Instruction Type:Provider Instructions for Treatment Patient Instructions Indication:Foot pain Start:17-Aug-2013 Instruction Type:Provider Instructions for Treatment [facility]; [facility] Work Phone: Instructions Name Dates Details Non-smoker : How to access h ealth information online Indication:Non-smoker Non-smoker : How to access h ealth information online - Detail Indication:Non-smoker Non-smoker : Patient Instruc tions Indication:Non-smoker BMI 32.0-32.9,adult : How to access health information online Indication:BMI 32.0-32.9,adult BMI 32.0-32.9,adult : How to access health information online - Detail Indication:BMI 32.0-32.9,adult BMI 32.0-32.9,adult : Patien t Instructions Indication:BMI 32.0-32.9,adult Bacterial sinusitis : How to access health information online Indication:Bacterial sinusitis Bacterial sinusitis : How to access health information online - Detail Indication:Bacterial sinusitis Bacterial sinusitis : Patien t Instructions Indication:Bacterial sinusitis Rash : How to access health information online Indication:Rash Rash : How to access health information online - Detail Indication:Rash Rash : Patient Instructions Indication:Rash Hematuria : How to access he alth information online Indication:Hematuria Hematuria : How to access he alth information online - Detail Indication:Hematuria Hematuria : Patient Instruct ions Indication:Hematuria Gout : Patient Instructions Indication:Gout Foot pain : Patient Instruct ions Indication:Foot pain Name Dates Details Non-smoker : How to access h ealth information online Indication:Non-smoker Non-smoker : How to access h ealth information online - Detail Indication:Non-smoker Elevated blood-pressure read ing, without diagnosis of hypertension (Renamed from Elevated blood-pressure reading without diagnosis of hypertension) : Patient Instructions Indication:Elevated blood-pressure reading, without diagnosis of hypertension (Renamed from Elevated blood-pressure reading without diagnosis of hypertension) BMI 32.0-32.9,adult : How to access health information online Indication:BMI 32.0-32.9,adult BMI 32.0-32.9,adult : How to access health information online - Detail Indication:BMI 32.0-32.9,adult BMI 32.0-32.9,adult : Patien t Instructions Indication:BMI 32.0-32.9,adult Non-smoker : Patient Instruc tions Indication:Non-smoker Bacterial sinusitis : How to access health information online Indication:Bacterial sinusitis Bacterial sinusitis : How to access health information online - Detail Indication:Bacterial sinusitis Bacterial sinusitis : Patien t Instructions Indication:Bacterial sinusitis Rash : How to access health information online Indication:Rash Rash : How to access health information online - Detail Indication:Rash Rash : Patient Instructions Indication:Rash Hematuria : How to access he alth information online Indication:Hematuria Hematuria : How to access he alth information online - Detail Indication:Hematuria Hematuria : Patient Instruct ions Indication:Hematuria Gout : Patient Instructions Indication:Gout Foot pain : Patient Instruct ions Indication:Foot pain Name Dates Details Non-smoker : How to access h ealth information online Indication:Non-smoker Non-smoker : How to access h ealth information online - Detail Indication:Non-smoker Gout : Patient Instructions Indication:Gout Elevated blood-pressure read ing, without diagnosis of hypertension (Renamed from Elevated blood-pressure reading without diagnosis of hypertension) : Patient Instructions Indication:Elevated blood-pressure reading, without diagnosis of hypertension (Renamed from Elevated blood-pressure reading without diagnosis of hypertension) BMI 32.0-32.9,adult : How to access health information online Indication:BMI 32.0-32.9,adult BMI 32.0-32.9,adult : How to access health information online - Detail Indication:BMI 32.0-32.9,adult BMI 32.0-32.9,adult : Patien t Instructions Indication:BMI 32.0-32.9,adult Non-smoker : Patient Instruc tions Indication:Non-smoker Bacterial sinusitis : How to access health information online Indication:Bacterial sinusitis Bacterial sinusitis : How to access health information online - Detail Indication:Bacterial sinusitis Bacterial sinusitis : Patien t Instructions Indication:Bacterial sinusitis Rash : How to access health information online Indication:Rash Rash : How to access health information online - Detail Indication:Rash Rash : Patient Instructions Indication:Rash Hematuria : How to access he alth information online Indication:Hematuria Hematuria : How to access he alth information online - Detail Indication:Hematuria Hematuria : Patient Instruct ions Indication:Hematuria Foot pain : Patient Instruct ions Indication:Foot pain Name Dates Details How to access health informa tion online Indication:Non-smoker Start:31-Oct-2018 Instruction Type:Patient Education How to access health informa tion online - Detail Indication:Non-smoker Start:31-Oct-2018 Instruction Type:Patient Education Patient Instructions Indication:Gout Start:31-Oct-2018 Instruction Type:Provider Instructions for Treatment How to access health informa tion online Indication:Non-smoker Start:19-Oct-2018 Instruction Type:Patient Education How to access health informa tion online - Detail Indication:Non-smoker Start:19-Oct-2018 Instruction Type:Patient Education Patient Instructions Indication:Elevated blood-pressure reading, without diagnosis of hypertension (Renamed from Elevated blood-pressure reading without diagnosis of hypertension) Start:19-Oct-2018 Instruction Type:Provider Instructions for Treatment How to access health informa tion online Indication:BMI 32.0-32.9,adult Start:12-Oct-2018 Instruction Type:Patient Education How to access health informa tion online - Detail Indication:BMI 32.0-32.9,adult Start:12-Oct-2018 Instruction Type:Patient Education Patient Instructions Indication:BMI 32.0-32.9,adult Start:12-Oct-2018 Instruction Type:Provider Instructions for Treatment How to access health informa tion online Indication:Non-smoker Start:28-Sep-2018 Instruction Type:Patient Education How to access health informa tion online - Detail Indication:Non-smoker Start:28-Sep-2018 Instruction Type:Patient Education Patient Instructions Indication:Non-smoker Start:28-Sep-2018 Instruction Type:Provider Instructions for Treatment How to access health informa tion online Indication:Bacterial sinusitis Start:13-May-2017 Instruction Type:Patient Education How to access health informa tion online - Detail Indication:Bacterial sinusitis Start:13-May-2017 Instruction Type:Patient Education Patient Instructions Indication:Bacterial sinusitis Start:13-May-2017 Instruction Type:Provider Instructions for Treatment How to access health informa tion online Indication:Bacterial sinusitis Start:23-Sep-2016 Instruction Type:Patient Education How to access health informa tion online - Detail Indication:Bacterial sinusitis Start:23-Sep-2016 Instruction Type:Patient Education Patient Instructions Indication:Bacterial sinusitis Start:23-Sep-2016 Instruction Type:Provider Instructions for Treatment How to access health informa tion online Indication:Rash Start:26-Feb-2016 Instruction Type:Patient Education How to access health informa tion online - Detail Indication:Rash Start:26-Feb-2016 Instruction Type:Patient Education Patient Instructions Indication:Rash Start:26-Feb-2016 Instruction Type:Provider Instructions for Treatment How to access health informa tion online Indication:Hematuria Start:05-Jun-2015 Instruction Type:Patient Education How to access health informa tion online - Detail Indication:Hematuria Start:05-Jun-2015 Instruction Type:Patient Education Patient Instructions Indication:Hematuria Start:05-Jun-2015 Instruction Type:Provider Instructions for Treatment Patient Instructions Indication:Gout Start:12-Jan-2014 Instruction Type:Provider Instructions for Treatment Patient Instructions Indication:Foot pain Start:17-Aug-2013 Instruction Type:Provider Instructions for Treatment Name Dates Details How to access health informa tion online Indication:Non-smoker Start:25-Jan-2019 Instruction Type:Patient Education How to access health informa tion online - Detail Indication:Non-smoker Start:25-Jan-2019 Instruction Type:Patient Education Patient Instructions Indication:Non-smoker Start:25-Jan-2019 Instruction Type:Provider Instructions for Treatment How to access health informa tion online Indication:Non-smoker Start:31-Oct-2018 Instruction Type:Patient Education How to access health informa tion online - Detail Indication:Non-smoker Start:31-Oct-2018 Instruction Type:Patient Education Patient Instructions Indication:Gout Start:31-Oct-2018 Instruction Type:Provider Instructions for Treatment How to access health informa tion online Indication:Non-smoker Start:19-Oct-2018 Instruction Type:Patient Education How to access health informa tion online - Detail Indication:Non-smoker Start:19-Oct-2018 Instruction Type:Patient Education Patient Instructions Indication:Elevated blood-pressure reading, without diagnosis of hypertension (Renamed from Elevated blood-pressure reading without diagnosis of hypertension) Start:19-Oct-2018 Instruction Type:Provider Instructions for Treatment How to access health informa tion online Indication:BMI 32.0-32.9,adult Start:12-Oct-2018 Instruction Type:Patient Education How to access health informa tion online - Detail Indication:BMI 32.0-32.9,adult Start:12-Oct-2018 Instruction Type:Patient Education Patient Instructions Indication:BMI 32.0-32.9,adult Start:12-Oct-2018 Instruction Type:Provider Instructions for Treatment How to access health informa tion online Indication:Non-smoker Start:28-Sep-2018 Instruction Type:Patient Education How to access health informa tion online - Detail Indication:Non-smoker Start:28-Sep-2018 Instruction Type:Patient Education Patient Instructions Indication:Non-smoker Start:28-Sep-2018 Instruction Type:Provider Instructions for Treatment How to access health informa tion online Indication:Bacterial sinusitis Start:13-May-2017 Instruction Type:Patient Education How to access health informa tion online - Detail Indication:Bacterial sinusitis Start:13-May-2017 Instruction Type:Patient Education Patient Instructions Indication:Bacterial sinusitis Start:13-May-2017 Instruction Type:Provider Instructions for Treatment How to access health informa tion online Indication:Bacterial sinusitis Start:23-Sep-2016 Instruction Type:Patient Education How to access health informa tion online - Detail Indication:Bacterial sinusitis Start:23-Sep-2016 Instruction Type:Patient Education Patient Instructions Indication:Bacterial sinusitis Start:23-Sep-2016 Instruction Type:Provider Instructions for Treatment How to access health informa tion online Indication:Rash Start:26-Feb-2016 Instruction Type:Patient Education How to access health informa tion online - Detail Indication:Rash Start:26-Feb-2016 Instruction Type:Patient Education Patient Instructions Indication:Rash Start:26-Feb-2016 Instruction Type:Provider Instructions for Treatment How to access health informa tion online Indication:Hematuria Start:05-Jun-2015 Instruction Type:Patient Education How to access health informa tion online - Detail Indication:Hematuria Start:05-Jun-2015 Instruction Type:Patient Education Patient Instructions Indication:Hematuria Start:05-Jun-2015 Instruction Type:Provider Instructions for Treatment Patient Instructions Indication:Gout Start:12-Jan-2014 Instruction Type:Provider Instructions for Treatment Patient Instructions Indication:Foot pain Start:17-Aug-2013 Instruction Type:Provider Instructions for Treatment Name Dates Details How to access health informa tion online Indication:Non-smoker Start:25-Jan-2019 Instruction Type:Patient Education How to access health informa tion online - Detail Indication:Non-smoker Start:25-Jan-2019 Instruction Type:Patient Education Patient Instructions Indication:Non-smoker Start:25-Jan-2019 Instruction Type:Provider Instructions for Treatment How to access health informa tion online Indication:Non-smoker Start:31-Oct-2018 Instruction Type:Patient Education How to access health informa tion online - Detail Indication:Non-smoker Start:31-Oct-2018 Instruction Type:Patient Education Patient Instructions Indication:Gout Start:31-Oct-2018 Instruction Type:Provider Instructions for Treatment How to access health informa tion online Indication:Non-smoker Start:19-Oct-2018 Instruction Type:Patient Education How to access health informa tion online - Detail Indication:Non-smoker Start:19-Oct-2018 Instruction Type:Patient Education Patient Instructions Indication:Elevated blood-pressure reading, without diagnosis of hypertension (Renamed from Elevated blood-pressure reading without diagnosis of hypertension) Start:19-Oct-2018 Instruction Type:Provider Instructions for Treatment How to access health informa tion online Indication:BMI 32.0-32.9,adult Start:12-Oct-2018 Instruction Type:Patient Education How to access health informa tion online - Detail Indication:BMI 32.0-32.9,adult Start:12-Oct-2018 Instruction Type:Patient Education Patient Instructions Indication:BMI 32.0-32.9,adult Start:12-Oct-2018 Instruction Type:Provider Instructions for Treatment How to access health informa tion online Indication:Non-smoker Start:28-Sep-2018 Instruction Type:Patient Education How to access health informa tion online - Detail Indication:Non-smoker Start:28-Sep-2018 Instruction Type:Patient Education Patient Instructions Indication:Non-smoker Start:28-Sep-2018 Instruction Type:Provider Instructions for Treatment How to access health informa tion online Indication:Bacterial sinusitis Start:13-May-2017 Instruction Type:Patient Education How to access health informa tion online - Detail Indication:Bacterial sinusitis Start:13-May-2017 Instruction Type:Patient Education Patient Instructions Indication:Bacterial sinusitis Start:13-May-2017 Instruction Type:Provider Instructions for Treatment How to access health informa tion online Indication:Bacterial sinusitis Start:23-Sep-2016 Instruction Type:Patient Education How to access health informa tion online - Detail Indication:Bacterial sinusitis Start:23-Sep-2016 Instruction Type:Patient Education Patient Instructions Indication:Bacterial sinusitis Start:23-Sep-2016 Instruction Type:Provider Instructions for Treatment How to access health informa tion online Indication:Rash Start:26-Feb-2016 Instruction Type:Patient Education How to access health informa tion online - Detail Indication:Rash Start:26-Feb-2016 Instruction Type:Patient Education Patient Instructions Indication:Rash Start:26-Feb-2016 Instruction Type:Provider Instructions for Treatment How to access health informa tion online Indication:Hematuria Start:05-Jun-2015 Instruction Type:Patient Education How to access health informa tion online - Detail Indication:Hematuria Start:05-Jun-2015 Instruction Type:Patient Education Patient Instructions Indication:Hematuria Start:05-Jun-2015 Instruction Type:Provider Instructions for Treatment Patient Instructions Indication:Gout Start:12-Jan-2014 Instruction Type:Provider Instructions for Treatment Patient Instructions Indication:Foot pain Start:17-Aug-2013 Instruction Type:Provider Instructions for Treatment Name Dates Details How to access health informa tion online Indication:Non-smoker Start:25-Jan-2019 Instruction Type:Patient Education How to access health informa tion online - Detail Indication:Non-smoker Start:25-Jan-2019 Instruction Type:Patient Education Patient Instructions Indication:Non-smoker Start:25-Jan-2019 Instruction Type:Provider Instructions for Treatment How to access health informa tion online Indication:Non-smoker Start:31-Oct-2018 Instruction Type:Patient Education How to access health informa tion online - Detail Indication:Non-smoker Start:31-Oct-2018 Instruction Type:Patient Education Patient Instructions Indication:Gout Start:31-Oct-2018 Instruction Type:Provider Instructions for Treatment How to access health informa tion online Indication:Non-smoker Start:19-Oct-2018 Instruction Type:Patient Education How to access health informa tion online - Detail Indication:Non-smoker Start:19-Oct-2018 Instruction Type:Patient Education Patient Instructions Indication:Elevated blood-pressure reading, without diagnosis of hypertension (Renamed from Elevated blood-pressure reading without diagnosis of hypertension) Start:19-Oct-2018 Instruction Type:Provider Instructions for Treatment How to access health informa tion online Indication:BMI 32.0-32.9,adult Start:12-Oct-2018 Instruction Type:Patient Education How to access health informa tion online - Detail Indication:BMI 32.0-32.9,adult Start:12-Oct-2018 Instruction Type:Patient Education Patient Instructions Indication:BMI 32.0-32.9,adult Start:12-Oct-2018 Instruction Type:Provider Instructions for Treatment How to access health informa tion online Indication:Non-smoker Start:28-Sep-2018 Instruction Type:Patient Education How to access health informa tion online - Detail Indication:Non-smoker Start:28-Sep-2018 Instruction Type:Patient Education Patient Instructions Indication:Non-smoker Start:28-Sep-2018 Instruction Type:Provider Instructions for Treatment How to access health informa tion online Indication:Bacterial sinusitis Start:13-May-2017 Instruction Type:Patient Education How to access health informa tion online - Detail Indication:Bacterial sinusitis Start:13-May-2017 Instruction Type:Patient Education Patient Instructions Indication:Bacterial sinusitis Start:13-May-2017 Instruction Type:Provider Instructions for Treatment How to access health informa tion online Indication:Bacterial sinusitis Start:23-Sep-2016 Instruction Type:Patient Education How to access health informa tion online - Detail Indication:Bacterial sinusitis Start:23-Sep-2016 Instruction Type:Patient Education Patient Instructions Indication:Bacterial sinusitis Start:23-Sep-2016 Instruction Type:Provider Instructions for Treatment How to access health informa tion online Indication:Rash Start:26-Feb-2016 Instruction Type:Patient Education How to access health informa tion online - Detail Indication:Rash Start:26-Feb-2016 Instruction Type:Patient Education Patient Instructions Indication:Rash Start:26-Feb-2016 Instruction Type:Provider Instructions for Treatment How to access health informa tion online Indication:Hematuria Start:05-Jun-2015 Instruction Type:Patient Education How to access health informa tion online - Detail Indication:Hematuria Start:05-Jun-2015 Instruction Type:Patient Education Patient Instructions Indication:Hematuria Start:05-Jun-2015 Instruction Type:Provider Instructions for Treatment Patient Instructions Indication:Gout Start:12-Jan-2014 Instruction Type:Provider Instructions for Treatment Patient Instructions Indication:Foot pain Start:17-Aug-2013 Instruction Type:Provider Instructions for Treatment Name Dates Details How to access health informa tion online Indication:Non-smoker Start:23-Nov-2019 Instruction Type:Patient Education How to access health informa tion online - Detail Indication:Non-smoker Start:23-Nov-2019 Instruction Type:Patient Education Patient Instructions Indication:Non-smoker Start:23-Nov-2019 Instruction Type:Provider Instructions for Treatment How to access health informa tion online Indication:Non-smoker Start:25-Jan-2019 Instruction Type:Patient Education How to access health informa tion online - Detail Indication:Non-smoker Start:25-Jan-2019 Instruction Type:Patient Education Patient Instructions Indication:Non-smoker Start:25-Jan-2019 Instruction Type:Provider Instructions for Treatment How to access health informa tion online Indication:Non-smoker Start:31-Oct-2018 Instruction Type:Patient Education How to access health informa tion online - Detail Indication:Non-smoker Start:31-Oct-2018 Instruction Type:Patient Education Patient Instructions Indication:Gout Start:31-Oct-2018 Instruction Type:Provider Instructions for Treatment How to access health informa tion online Indication:Non-smoker Start:19-Oct-2018 Instruction Type:Patient Education How to access health informa tion online - Detail Indication:Non-smoker Start:19-Oct-2018 Instruction Type:Patient Education Patient Instructions Indication:Elevated blood-pressure reading, without diagnosis of hypertension (Renamed from Elevated blood-pressure reading without diagnosis of hypertension) Start:19-Oct-2018 Instruction Type:Provider Instructions for Treatment How to access health informa tion online Indication:BMI 32.0-32.9,adult Start:12-Oct-2018 Instruction Type:Patient Education How to access health informa tion online - Detail Indication:BMI 32.0-32.9,adult Start:12-Oct-2018 Instruction Type:Patient Education Patient Instructions Indication:BMI 32.0-32.9,adult Start:12-Oct-2018 Instruction Type:Provider Instructions for Treatment How to access health informa tion online Indication:Non-smoker Start:28-Sep-2018 Instruction Type:Patient Education How to access health informa tion online - Detail Indication:Non-smoker Start:28-Sep-2018 Instruction Type:Patient Education Patient Instructions Indication:Non-smoker Start:28-Sep-2018 Instruction Type:Provider Instructions for Treatment How to access health informa tion online Indication:Bacterial sinusitis Start:13-May-2017 Instruction Type:Patient Education How to access health informa tion online - Detail Indication:Bacterial sinusitis Start:13-May-2017 Instruction Type:Patient Education Patient Instructions Indication:Bacterial sinusitis Start:13-May-2017 Instruction Type:Provider Instructions for Treatment How to access health informa tion online Indication:Bacterial sinusitis Start:23-Sep-2016 Instruction Type:Patient Education How to access health informa tion online - Detail Indication:Bacterial sinusitis Start:23-Sep-2016 Instruction Type:Patient Education Patient Instructions Indication:Bacterial sinusitis Start:23-Sep-2016 Instruction Type:Provider Instructions for Treatment How to access health informa tion online Indication:Rash Start:26-Feb-2016 Instruction Type:Patient Education How to access health informa tion online - Detail Indication:Rash Start:26-Feb-2016 Instruction Type:Patient Education Patient Instructions Indication:Rash Start:26-Feb-2016 Instruction Type:Provider Instructions for Treatment How to access health informa tion online Indication:Hematuria Start:05-Jun-2015 Instruction Type:Patient Education How to access health informa tion online - Detail Indication:Hematuria Start:05-Jun-2015 Instruction Type:Patient Education Patient Instructions Indication:Hematuria Start:05-Jun-2015 Instruction Type:Provider Instructions for Treatment Patient Instructions Indication:Gout Start:12-Jan-2014 Instruction Type:Provider Instructions for Treatment Patient Instructions Indication:Foot pain Start:17-Aug-2013 Instruction Type:Provider Instructions for Treatment Name Dates Details BMI 32.0-32.9,adult : How to access health information online Indication:BMI 32.0-32.9,adult BMI 32.0-32.9,adult : How to access health information online - Detail Indication:BMI 32.0-32.9,adult BMI 32.0-32.9,adult : Patien t Instructions Indication:BMI 32.0-32.9,adult Non-smoker : How to access h ealth information online Indication:Non-smoker Non-smoker : How to access h ealth information online - Detail Indication:Non-smoker Non-smoker : Patient Instruc tions Indication:Non-smoker Bacterial sinusitis : How to access health information online Indication:Bacterial sinusitis Bacterial sinusitis : How to access health information online - Detail Indication:Bacterial sinusitis Bacterial sinusitis : Patien t Instructions Indication:Bacterial sinusitis Rash : How to access health information online Indication:Rash Rash : How to access health information online - Detail Indication:Rash Rash : Patient Instructions Indication:Rash Hematuria : How to access he alth information online Indication:Hematuria Hematuria : How to access he alth information online - Detail Indication:Hematuria Hematuria : Patient Instruct ions Indication:Hematuria Gout : Patient Instructions Indication:Gout Foot pain : Patient Instruct ions Indication:Foot pain Name Dates Details Non-smoker : How to access h ealth information online Indication:Non-smoker Non-smoker : How to access h ealth information online - Detail Indication:Non-smoker Non-smoker : Patient Instruc tions Indication:Non-smoker Bacterial sinusitis : How to access health information online Indication:Bacterial sinusitis Bacterial sinusitis : How to access health information online - Detail Indication:Bacterial sinusitis Bacterial sinusitis : Patien t Instructions Indication:Bacterial sinusitis Rash : How to access health information online Indication:Rash Rash : How to access health information online - Detail Indication:Rash Rash : Patient Instructions Indication:Rash Hematuria : How to access he alth information online Indication:Hematuria Hematuria : How to access he alth information online - Detail Indication:Hematuria Hematuria : Patient Instruct ions Indication:Hematuria Gout : Patient Instructions Indication:Gout Foot pain : Patient Instruct ions Indication:Foot pain Name Dates Details Non-smoker : How to access h ealth information online Indication:Non-smoker Non-smoker : How to access h ealth information online - Detail Indication:Non-smoker Elevated blood-pressure read ing, without diagnosis of hypertension (Renamed from Elevated blood-pressure reading without diagnosis of hypertension) : Patient Instructions Indication:Elevated blood-pressure reading, without diagnosis of hypertension (Renamed from Elevated blood-pressure reading without diagnosis of hypertension) BMI 32.0-32.9,adult : How to access health information online Indication:BMI 32.0-32.9,adult BMI 32.0-32.9,adult : How to access health information online - Detail Indication:BMI 32.0-32.9,adult BMI 32.0-32.9,adult : Patien t Instructions Indication:BMI 32.0-32.9,adult Non-smoker : Patient Instruc tions Indication:Non-smoker Bacterial sinusitis : How to access health information online Indication:Bacterial sinusitis Bacterial sinusitis : How to access health information online - Detail Indication:Bacterial sinusitis Bacterial sinusitis : Patien t Instructions Indication:Bacterial sinusitis Rash : How to access health information online Indication:Rash Rash : How to access health information online - Detail Indication:Rash Rash : Patient Instructions Indication:Rash Hematuria : How to access he alth information online Indication:Hematuria Hematuria : How to access he alth information online - Detail Indication:Hematuria Hematuria : Patient Instruct ions Indication:Hematuria Gout : Patient Instructions Indication:Gout Foot pain : Patient Instruct ions Indication:Foot pain Name Dates Details Patient Instructions Indication:Non-smoker Start:16-Sep-2020 Instruction Type:Provider Instructions for Treatment How to Access Health Informa tion Online using Patient Portal and [employer] Apps Indication:Non-smoker Start:16-Sep-2020 Instruction Type:Patient Education Patient Instructions Indication:Non-smoker Start:21-Aug-2020 Instruction Type:Provider Instructions for Treatment How to Access Health Informa tion Online using Patient Portal and [employer] Apps Indication:Non-smoker Start:21-Aug-2020 Instruction Type:Patient Education How to access health informa tion online Indication:Non-smoker Start:23-Nov-2019 Instruction Type:Patient Education How to access health informa tion online - Detail Indication:Non-smoker Start:23-Nov-2019 Instruction Type:Patient Education Patient Instructions Indication:Non-smoker Start:23-Nov-2019 Instruction Type:Provider Instructions for Treatment How to access health informa tion online Indication:Non-smoker Start:25-Jan-2019 Instruction Type:Patient Education How to access health informa tion online - Detail Indication:Non-smoker Start:25-Jan-2019 Instruction Type:Patient Education Patient Instructions Indication:Non-smoker Start:25-Jan-2019 Instruction Type:Provider Instructions for Treatment How to access health informa tion online Indication:Non-smoker Start:31-Oct-2018 Instruction Type:Patient Education How to access health informa tion online - Detail Indication:Non-smoker Start:31-Oct-2018 Instruction Type:Patient Education Patient Instructions Indication:Gout Start:31-Oct-2018 Instruction Type:Provider Instructions for Treatment How to access health informa tion online Indication:Non-smoker Start:19-Oct-2018 Instruction Type:Patient Education How to access health informa tion online - Detail Indication:Non-smoker Start:19-Oct-2018 Instruction Type:Patient Education Patient Instructions Indication:Elevated blood-pressure reading, without diagnosis of hypertension (Renamed from Elevated blood-pressure reading without diagnosis of hypertension) Start:19-Oct-2018 Instruction Type:Provider Instructions for Treatment How to access health informa tion online Indication:BMI 32.0-32.9,adult Start:12-Oct-2018 Instruction Type:Patient Education How to access health informa tion online - Detail Indication:BMI 32.0-32.9,adult Start:12-Oct-2018 Instruction Type:Patient Education Patient Instructions Indication:BMI 32.0-32.9,adult Start:12-Oct-2018 Instruction Type:Provider Instructions for Treatment How to access health informa tion online Indication:Non-smoker Start:28-Sep-2018 Instruction Type:Patient Education How to access health informa tion online - Detail Indication:Non-smoker Start:28-Sep-2018 Instruction Type:Patient Education Patient Instructions Indication:Non-smoker Start:28-Sep-2018 Instruction Type:Provider Instructions for Treatment How to access health informa tion online Indication:Bacterial sinusitis Start:13-May-2017 Instruction Type:Patient Education How to access health informa tion online - Detail Indication:Bacterial sinusitis Start:13-May-2017 Instruction Type:Patient Education Patient Instructions Indication:Bacterial sinusitis Start:13-May-2017 Instruction Type:Provider Instructions for Treatment How to access health informa tion online Indication:Bacterial sinusitis Start:23-Sep-2016 Instruction Type:Patient Education How to access health informa tion online - Detail Indication:Bacterial sinusitis Start:23-Sep-2016 Instruction Type:Patient Education Patient Instructions Indication:Bacterial sinusitis Start:23-Sep-2016 Instruction Type:Provider Instructions for Treatment How to access health informa tion online Indication:Rash Start:26-Feb-2016 Instruction Type:Patient Education How to access health informa tion online - Detail Indication:Rash Start:26-Feb-2016 Instruction Type:Patient Education Patient Instructions Indication:Rash Start:26-Feb-2016 Instruction Type:Provider Instructions for Treatment How to access health informa tion online Indication:Hematuria Start:05-Jun-2015 Instruction Type:Patient Education How to access health informa tion online - Detail Indication:Hematuria Start:05-Jun-2015 Instruction Type:Patient Education Patient Instructions Indication:Hematuria Start:05-Jun-2015 Instruction Type:Provider Instructions for Treatment Patient Instructions Indication:Gout Start:12-Jan-2014 Instruction Type:Provider Instructions for Treatment Patient Instructions Indication:Foot pain Start:17-Aug-2013 Instruction Type:Provider Instructions for Treatment Name Dates Details How to Access Health Informa tion Online using Patient Portal and [employer] Apps Indication:Non-smoker Start:08-Nov-2020 Instruction Type:Patient Education Patient Instructions Indication:Non-smoker Start:08-Nov-2020 Instruction Type:Provider Instructions for Treatment Patient Instructions Indication:Non-smoker Start:16-Sep-2020 Instruction Type:Provider Instructions for Treatment How to Access Health Informa tion Online using Patient Portal and [employer] Apps Indication:Non-smoker Start:16-Sep-2020 Instruction Type:Patient Education Patient Instructions Indication:Non-smoker Start:21-Aug-2020 Instruction Type:Provider Instructions for Treatment How to Access Health Informa tion Online using Patient Portal and [employer] Apps Indication:Non-smoker Start:21-Aug-2020 Instruction Type:Patient Education How to access health informa tion online Indication:Non-smoker Start:23-Nov-2019 Instruction Type:Patient Education How to access health informa tion online - Detail Indication:Non-smoker Start:23-Nov-2019 Instruction Type:Patient Education Patient Instructions Indication:Non-smoker Start:23-Nov-2019 Instruction Type:Provider Instructions for Treatment How to access health informa tion online Indication:Non-smoker Start:25-Jan-2019 Instruction Type:Patient Education How to access health informa tion online - Detail Indication:Non-smoker Start:25-Jan-2019 Instruction Type:Patient Education Patient Instructions Indication:Non-smoker Start:25-Jan-2019 Instruction Type:Provider Instructions for Treatment How to access health informa tion online Indication:Non-smoker Start:31-Oct-2018 Instruction Type:Patient Education How to access health informa tion online - Detail Indication:Non-smoker Start:31-Oct-2018 Instruction Type:Patient Education Patient Instructions Indication:Gout Start:31-Oct-2018 Instruction Type:Provider Instructions for Treatment How to access health informa tion online Indication:Non-smoker Start:19-Oct-2018 Instruction Type:Patient Education How to access health informa tion online - Detail Indication:Non-smoker Start:19-Oct-2018 Instruction Type:Patient Education Patient Instructions Indication:Elevated blood-pressure reading, without diagnosis of hypertension (Renamed from Elevated blood-pressure reading without diagnosis of hypertension) Start:19-Oct-2018 Instruction Type:Provider Instructions for Treatment How to access health informa tion online Indication:BMI 32.0-32.9,adult Start:12-Oct-2018 Instruction Type:Patient Education How to access health informa tion online - Detail Indication:BMI 32.0-32.9,adult Start:12-Oct-2018 Instruction Type:Patient Education Patient Instructions Indication:BMI 32.0-32.9,adult Start:12-Oct-2018 Instruction Type:Provider Instructions for Treatment How to access health informa tion online Indication:Non-smoker Start:28-Sep-2018 Instruction Type:Patient Education How to access health informa tion online - Detail Indication:Non-smoker Start:28-Sep-2018 Instruction Type:Patient Education Patient Instructions Indication:Non-smoker Start:28-Sep-2018 Instruction Type:Provider Instructions for Treatment How to access health informa tion online Indication:Bacterial sinusitis Start:13-May-2017 Instruction Type:Patient Education How to access health informa tion online - Detail Indication:Bacterial sinusitis Start:13-May-2017 Instruction Type:Patient Education Patient Instructions Indication:Bacterial sinusitis Start:13-May-2017 Instruction Type:Provider Instructions for Treatment How to access health informa tion online Indication:Bacterial sinusitis Start:23-Sep-2016 Instruction Type:Patient Education How to access health informa tion online - Detail Indication:Bacterial sinusitis Start:23-Sep-2016 Instruction Type:Patient Education Patient Instructions Indication:Bacterial sinusitis Start:23-Sep-2016 Instruction Type:Provider Instructions for Treatment How to access health informa tion online Indication:Rash Start:26-Feb-2016 Instruction Type:Patient Education How to access health informa tion online - Detail Indication:Rash Start:26-Feb-2016 Instruction Type:Patient Education Patient Instructions Indication:Rash Start:26-Feb-2016 Instruction Type:Provider Instructions for Treatment How to access health informa tion online Indication:Hematuria Start:05-Jun-2015 Instruction Type:Patient Education How to access health informa tion online - Detail Indication:Hematuria Start:05-Jun-2015 Instruction Type:Patient Education Patient Instructions Indication:Hematuria Start:05-Jun-2015 Instruction Type:Provider Instructions for Treatment Patient Instructions Indication:Gout Start:12-Jan-2014 Instruction Type:Provider Instructions for Treatment Patient Instructions Indication:Foot pain Start:17-Aug-2013 Instruction Type:Provider Instructions for Treatment Advance Directives Name Dates Details Immunization Registry [place] - Effective on 01/01/2021. Expiration date unspecified Effective:01-Jan-2021 Name Dates Details Immunization Registry [place] - Effective on 01/01/2021. Expiration date unspecified Effective:01-Jan-2021 Name Dates Details Immunization Registry [place] - Effective on 01/01/2021. Expiration date unspecified Effective:01-Jan-2021 Name Dates Details Immunization Registry [place] - Effective on 01/01/2021. Expiration date unspecified Effective:01-Jan-2021 Name Dates Details Immunization Registry [place] - Effective on 01/01/2021. Expiration date unspecified Effective:01-Jan-2021 Name Dates Details Immunization Registry [place] - Effective on 01/01/2021. Expiration date unspecified Effective:01-Jan-2021 Name Dates Details Immunization Registry [place] - Effective on 01/01/2021. Expiration date unspecified Effective:01-Jan-2021 Name Dates Details Immunization Registry [place] - Effective on 01/01/2021. Expiration date unspecified Effective:01-Jan-2021 Name Dates Details Immunization Registry [place] - Effective on 01/01/2021. Expiration date unspecified Effective:01-Jan-2021 Name Dates Details Immunization Registry [place] - Effective on 01/01/2021. Expiration date unspecified Effective:01-Jan-2021 Summary Purpose Family History No Family History Records FoundNo Family History Records Found Additional Source Comments (unrecognized sect ion and content) No Status Records FoundNo Status Records Found INFORMATION SOURCE (unrecogn ized section and content) DATE CREATED AUTHOR AUTHOR'S ORGANIZ ATION 09/03/2022 Comprehensive In [facility] FOR RECORDS PERTAINING TO PATIENTS WHO ARE OR HAVE BEEN ENROLLED IN A CHEMICAL DEPENDENCY/SUBSTANCEABUSE PROGRAM, SOME INFORMATION MAY BE OMITTED. This clinical summary was aggregated from multiple sources. Caution should be exercised in using it in the provision of clinical care. This summary normalizes information from multiple sources, and as a consequence, information in this document may materially change the coding, format and clinical context of patient data. In addition, data may be omitted in some cases. CLINICAL DECISIONS SHOULD BE BASED ON THE PRIMARY CLINICAL RECORDS. [facility] [employer] [facility] provides no warranty or guarantee of the accuracy or completeness of information in this document.
== END | disposition home or self-care (01) ==
PROVIDERS: PCP Internal Medicine; Referring Provider Internal Medicine; Visit Provider Internal Medicine
DX: R31.0 Gross hematuria (principal)
CPT/HCPCS: 74176

== ENCOUNTER → 2025-06-04 | Outpatient (CLI) | payer BC, SELFPAY | END | disposition home or self-care (01) | PROVIDERS: PCP Internal Medicine; Referring Provider Internal Medicine; Visit Provider Internal Medicine | DX: G47.30 Sleep apnea, unspecified (principal); R06.83 Snoring; R53.83 Other fatigue | CPT/HCPCS: 95806 ==